=== PATIENT | female | born 1965 | race Caucasian/White ===

== ENCOUNTER 2017-07-16 13:23 | Inpatient (IN) | payer BC ==
[~2017-07-16] VITALS: Ht 160 cm; Wt 82.7 kg
[~2017-07-16 13:23] MED LIST: ASPIRIN 81M81 MG/TA2 PO; DIGESTIVE ENZYM1 TAB PO; FIBER TABLETS1 TAB PO; GLUCOVANCE 2.51 TAB PO; HUMALOG100 U/ML; KLOR-CON 1010 MEQ PO; LACTOSE 260 MG1 CAP; LANTUS100 U/ML SQ; LEVOXYL0.025 MG PO; LOPRESSOR 225 MG/TAB PO; MEDROL 4MG DOSPA4 MG PO; MOBIC15 MG PO; NORCO 325 MG-51 TAB PO; NORCO 325 MG-7.1 TAB PO; NORVASC 5MG5 MG/TAB PO; PHILLIPS1 TAB PO; PRINZIDE 12.5 M1 TA1 PO; PROZAC 20MG20 MG PO; ULTRAM 50MG TAB50 MG PO; ZANTAC 150MG T150 MG PO
[2017-07-16 14:33] LABS: BASO % 0.2 % (0.0-2.0); EOS # 0.1 (0.0-0.7); EOS % 0.8 % (0-4.0); GRAN # 8.8 (1.4-6.5); GRAN % 82.7 % (42.2-75.2); LYMPH # 1.1 (1.2-3.4); LYMPH % 9.9 % (20.0-51.0); MEAN CELL VOLUME 91 fl (80.0-100.0); MEAN CORPUSCULAR HGB CONC 33 g/dl (33.0-37.0); MEAN PLATELET VOLUME 10.3 fl (7.4-10.4); MONO # 0.6 (0.1-0.6); MONO % 5.9 % (1.7-9.3); PLATELET COUNT 254 K/mm3 (130-400); RED BLOOD COUNT 3.27 M/mm3 (4.10-5.30); REDCELL DISTRIBUTION WIDTH-CV 12.9 % (11.5-14.5)
[2017-07-16 14:36] LABS: HEMATOCRIT 29.8 % (37.0-47.0); HEMOGLOBIN 9.8 g/dl (12.5-16.0); MEAN CORPUSCULAR HEMOGLOBIN 30 pg (27.0-31.0)
[2017-07-16 14:46] LABS: ALANINE AMINOTRANSFERASE 22 U/L (9-52); ALBUMIN 3.3 gm/dL (3.5-5.0); ALKALINE PHOSPHATASE 95 U/L (50-136); AST,SGOT 27 U/L (15-37); BILIRUBIN,TOTAL 0.2 mg/dL (0.0-1.0); TOTAL PROTEIN 6.3 gm/dL (6.4-8.2)
[2017-07-16 14:48] LABS: ANION GAP 9 mmol/L (7-16); BLOOD UREA NITROGEN 47 mg/dL (7-17); C-REACTIVE PROTEIN < 0.5 mg/dL (0.0-0.9); CALCIUM 8.1 mg/dL (8.4-10.2); CARBON DIOXIDE 26 mmol/L (22-30); CHLORIDE 101 mmol/L (98-107); GLUCOSE 212 mg/dL (74-106); POTASSIUM 3.8 mmol/L (3.4-5.0); SODIUM 136 mmol/L (137-145)
[2017-07-16 14:50] LABS: CREATININE, serum 4.16 mg/dL (0.52-1.25)
[2017-07-16 14:55] LABS: COLLECTION METHOD CLEAN CATCH
[2017-07-16 15:01] LABS: PH 7 (5-8); SQUAMOUS EPITHELIAL 0-2 /hpf; URINE APPEARANCE Clear; URINE BACTERIA None Seen /hpf; URINE BILIRUBIN Negative (NEGATIVE); URINE BLOOD Negative (NEGATIVE); URINE COLOR Yellow; URINE GLUCOSE 3+ (NEGATIVE); URINE KETONE Negative (NEGATIVE); URINE LEUKOCYTE ESTERASE Negative (NEGATIVE); URINE NITRATE Negative (NEGATIVE); URINE PROTEIN(semi-quant) 3+ (NEGATIVE); URINE UROBILINOGEN Negative (NEGATIVE)
[2017-07-16 15:35] LABS: CREATININE, serum 4.16 mg/dL (0.52-1.25)
[2017-07-16 15:47] LABS: FRACTIONAL EXCRETION OF NA+ 7.2 %
[2017-07-16] MEDS ORDERED: NEXIUM 20MG20 MG PO (16:37)
[2017-07-16] MEDS ORDERED: XYZAL5 MG PO (16:37)
[2017-07-16] MEDS ORDERED: ALDACTONE50 MG PO (16:39)
[2017-07-16 17:08] VITALS: BP 188/83; PULSE 81; TEMP 98
[2017-07-16 17:09] VITALS: BP 188/83; PULSE 81; TEMP 98
[2017-07-16] MEDS ORDERED: PRILOTC PO (17:40)
[2017-07-16] MEDS ORDERED: TOPROL XL 25MG25 MG PO (17:40)
[2017-07-16] MEDS ORDERED: IMODIUM A-D2 MG PO (17:41)
[2017-07-16] MEDS ORDERED: ASPIRIN 81M81 MG/TA2 PO (17:43)
[2017-07-16] MEDS ORDERED: TYLENOL 500MG500 MG PO (17:44)
[2017-07-16 19:01] VITALS: BP 189/83; PULSE 82
[2017-07-16 20:15] VITALS: BP 191/81; PULSE 81; TEMP 98.2
[2017-07-16 20:19] LABS: URINE PROTEIN:CREAT RATIO 14.24 (0.00-0.14)
[2017-07-16 23:32] VITALS: BP 157/74; PULSE 72; TEMP 98.8
[2017-07-17 03:14] VITALS: BP 146/73; PULSE 73; TEMP 97.3
[2017-07-17 08:09] LABS: ALBUMIN 2.9 gm/dL (3.5-5.0); CALCIUM 8.1 mg/dL (8.4-10.2); PHOSPHOROUS 4.4 mg/dL (2.5-4.5); POTASSIUM 3.5 mmol/L (3.4-5.0)
[2017-07-17 08:41] VITALS: BP 171/79; PULSE 77; TEMP 98.4
[2017-07-17 11:30] VITALS: BP 170/83; PULSE 71; TEMP 98.5
[2017-07-17 15:21] VITALS: BP 149/56; PULSE 77; TEMP 98.2
[2017-07-17 15:25] VITALS: BP 136/74; PULSE 72; TEMP 98.7
[2017-07-17 19:52] VITALS: BP 139/73; PULSE 71; TEMP 98
[2017-07-18 00:08] VITALS: BP 140/70; PULSE 67; TEMP 98.9
[2017-07-18 03:53] VITALS: BP 153/73; PULSE 67; TEMP 97.8
[2017-07-18 08:18] VITALS: BP 153/79; PULSE 67; TEMP 98.8
[2017-07-18 08:31] LABS: ALBUMIN 2.6 gm/dL (3.5-5.0); CALCIUM 8.1 mg/dL (8.4-10.2); PHOSPHOROUS 4.6 mg/dL (2.5-4.5); POTASSIUM 3.8 mmol/L (3.4-5.0)
[2017-07-18 08:46] LABS: CREATININE, serum 4.08 mg/dL (0.52-1.25)
[2017-07-18 11:37] VITALS: BP 149/79; PULSE 69; TEMP 98.8
[2017-07-18] MEDS ORDERED: ZESTRIL40 MG PO (14:48)
[2017-07-18] MEDS ORDERED: NEURONTIN100 MG/CAP PO (14:50)
[2017-07-18] MEDS ORDERED: NORVASC 10MG10 MG PO (14:51)
== END 2017-07-18 16:17 | disposition home or self-care (01) | DRG 683 ==
LOC: COL.ER 13:23 → MEDICAL 15:26
PROVIDERS: Emergency Medicine; Internal Medicine Nephrology
DX: N17.0 Acute kidney failure with tubular necrosis (principal); I16.1 Hypertensive emergency; I12.9 Hypertensive chronic kidney disease with stage 1 through stage 4 chronic kidney disease, or unspecified chronic kidney disease; E11.22 Type 2 diabetes mellitus with diabetic chronic kidney disease; N18.3 Chronic kidney disease, stage 3 (moderate); Z91.14 Patient's other noncompliance with medication regimen; Z87.891 Personal history of nicotine dependence; D63.1 Anemia in chronic kidney disease; E11.43 Type 2 diabetes mellitus with diabetic autonomic (poly)neuropathy; K31.84 Gastroparesis; E11.42 Type 2 diabetes mellitus with diabetic polyneuropathy; M54.32 Sciatica, left side
CPT/HCPCS: J1815; J7030

== ENCOUNTER → 2017-07-28 | Outpatient (CLI) | payer BC ==
[~2017-07-28] MED LIST changes: +ALDACTONE50 MG PO; +IMODIUM A-D2 MG PO; +NEURONTIN100 MG/CAP PO; +NEXIUM 20MG20 MG PO; +NORVASC 10MG10 MG PO; +PRILOTC PO; +TOPROL XL 25MG25 MG PO; +TYLENOL 500MG500 MG PO; +XYZAL5 MG PO; +ZESTRIL40 MG PO
== END ==
LOC: COL.VAS 12:24
DX: N18.5 Chronic kidney disease, stage 5 (principal)
CPT/HCPCS: G0365

== ENCOUNTER 2017-08-10 16:39 | Emergency (ER) | payer BC ==
[~2017-08-10] VITALS: Ht 160 cm; Wt 78.2 kg
[2017-08-10 17:27] LABS: BASO % 0.2 % (0.0-2.0); EOS # 0.1 (0.0-0.7); EOS % 1.1 % (0-4.0); GRAN # 9.1 (1.4-6.5); GRAN % 74.4 % (42.2-75.2); HEMATOCRIT 26.1 % (37.0-47.0); HEMOGLOBIN 8.2 g/dl (12.5-16.0); LYMPH # 1.9 (1.2-3.4); LYMPH % 15.5 % (20.0-51.0); MEAN CELL VOLUME 94 fl (80.0-100.0); MEAN CORPUSCULAR HEMOGLOBIN 29 pg (27.0-31.0); MEAN CORPUSCULAR HGB CONC 31 g/dl (33.0-37.0); MEAN PLATELET VOLUME 9.6 fl (7.4-10.4); MONO % 8.4 % (1.7-9.3); PLATELET COUNT 291 K/mm3 (130-400); RED BLOOD COUNT 2.78 M/mm3 (4.10-5.30)
[2017-08-10 17:35] LABS: ALBUMIN 3.3 gm/dL (3.5-5.0); BILIRUBIN,TOTAL 0.1 mg/dL (0.0-1.0); CALCIUM 8.7 mg/dL (8.4-10.2); MAGNESIUM 1.7 mg/dL (1.6-2.3); PHOSPHOROUS 6.4 mg/dL (2.5-4.5); TOTAL PROTEIN 6.8 gm/dL (6.4-8.2)
[2017-08-10 17:37] LABS: CREATININE, serum 6.88 mg/dL (0.52-1.25); POTASSIUM 6.8 mmol/L (3.4-5.0)
[2017-08-10 19:05] LABS: COLLECTION METHOD CLEAN CATCH
[2017-08-10 19:20] LABS: MUCOUS Present /lpf; PH 5 (5-8); SQUAMOUS EPITHELIAL 0-2 /hpf; URINE APPEARANCE Hazy; URINE BACTERIA Rare /hpf; URINE BILIRUBIN Negative (NEGATIVE); URINE BLOOD Negative (NEGATIVE); URINE COLOR Yellow; URINE GLUCOSE Negative (NEGATIVE); URINE KETONE Negative (NEGATIVE); URINE LEUKOCYTE ESTERASE Trace (NEGATIVE); URINE NITRATE Negative (NEGATIVE); URINE PROTEIN(semi-quant) 3+ (NEGATIVE); URINE UROBILINOGEN Negative (NEGATIVE)
[2017-08-10 19:54] LABS: CALCIUM 9.2 mg/dL (8.4-10.2); POTASSIUM 5.6 mmol/L (3.4-5.0)
[2017-08-10 19:58] LABS: CREATININE, serum 6.61 mg/dL (0.52-1.25)
[2017-08-10 21:10] VITALS: BP 137/67; PULSE 83; TEMP 98
== END 2017-08-10 21:22 | disposition home or self-care (01) ==
LOC: COL.ER 16:39
PROVIDERS: Emergency Medicine
DX: E11.22 Type 2 diabetes mellitus with diabetic chronic kidney disease (principal); I12.9 Hypertensive chronic kidney disease with stage 1 through stage 4 chronic kidney disease, or unspecified chronic kidney disease; N18.4 Chronic kidney disease, stage 4 (severe); N17.9 Acute kidney failure, unspecified; E87.5 Hyperkalemia; E87.2 Acidosis; D64.9 Anemia, unspecified; E66.01 Morbid (severe) obesity due to excess calories; E03.9 Hypothyroidism, unspecified; F32.9 Major depressive disorder, single episode, unspecified; Z68.30 Body mass index [BMI] 30.0-30.9, adult; Z90.710 Acquired absence of both cervix and uterus; Z90.49 Acquired absence of other specified parts of digestive tract; Z98.890 Other specified postprocedural states; Z79.4 Long term (current) use of insulin; Z79.82 Long term (current) use of aspirin
CPT/HCPCS: J0610; J7030

== ENCOUNTER 2017-10-24 15:48 | Emergency (ER) | payer BC ==
[~2017-10-24] VITALS: Ht 160 cm; Wt 79.5 kg
[~2017-10-24 15:48] MED LIST changes: +ASPIRIN E.C. 8181 MG PO; +B COMPLEX #11 TAB PO; +COENZYME Q-10100 M1 PO; +CORDARONE200 MG/TAB PO; +DESENEX TP; +HUMALOG100 U/ML SQ; +IMODIUM 2MG CAPS2 MG PO; +K-DUR 10 MEQ T10 MEQ PO; +LANTUS SOLOS100 U/ML SQ; +LASIX 40MG TABL40 MG PO; +Patient's Own Medica PO; +SODIUM BICARBO650 MG PO; +SYNTHROID 0.0.025 MG PO; +ZAROXOLYN 2.52.5 MG PO
[2017-10-24 16:00] VITALS: TEMP 98.9
[2017-10-24 17:10] VITALS: BP 176/86; PULSE 91
== END 2017-10-24 17:15 | disposition home or self-care (01) ==
LOC: COL.ER 15:48
DX: T82.9XXA Unspecified complication of cardiac and vascular prosthetic device, implant and graft, initial encounter (principal); I12.0 Hypertensive chronic kidney disease with stage 5 chronic kidney disease or end stage renal disease; E08.22 Diabetes mellitus due to underlying condition with diabetic chronic kidney disease; N18.6 End stage renal disease; Z99.2 Dependence on renal dialysis; Z79.4 Long term (current) use of insulin; Z79.82 Long term (current) use of aspirin

== ENCOUNTER → 2017-11-29 | Outpatient (CLI) | payer BC | LOC: COL.VAS 15:01 | DX: I34.0 Nonrheumatic mitral (valve) insufficiency (principal) ==

== ENCOUNTER 2017-12-07 08:48 | Inpatient (IN) | payer BC ==
[~2017-12-07] VITALS: Ht 160 cm; Wt 79.5 kg
[2017-12-07] MEDS ORDERED: TYLENOL 500MG500 MG PO (09:04)
[2017-12-07 09:24] LABS: MEAN CELL VOLUME 86 fl (80.0-100.0); MEAN CORPUSCULAR HGB CONC 32 g/dl (33.0-37.0); MEAN PLATELET VOLUME 10.3 fl (7.4-10.4); PLATELET COUNT 304 K/mm3 (130-400); RED BLOOD COUNT 3.18 M/mm3 (4.10-5.30); REDCELL DISTRIBUTION WIDTH-CV 18.6 % (11.5-14.5)
[2017-12-07 09:29] LABS: HEMATOCRIT 27.4 % (37.0-47.0); HEMOGLOBIN 8.8 g/dl (12.5-16.0); MEAN CORPUSCULAR HEMOGLOBIN 28 pg (27.0-31.0)
[2017-12-07 09:42] LABS: ALBUMIN 2.9 gm/dL (3.5-5.0); BILIRUBIN,TOTAL 0.7 mg/dL (0.0-1.0); CALCIUM 8.6 mg/dL (8.4-10.2); POTASSIUM 4.4 mmol/L (3.4-5.0); TOTAL PROTEIN 6.5 gm/dL (6.4-8.2)
[2017-12-07 09:43] LABS: CREATININE, serum 4.53 mg/dL (0.52-1.25)
[2017-12-07 09:45] LABS: COLLECTION METHOD CLEAN CATCH
[2017-12-07 09:50] LABS: TROPONIN-I 0.03 ng/mL (0.000-0.034)
[2017-12-07 10:00] LABS: C-REACTIVE PROTEIN 19.6 mg/dL (0.0-0.9)
[2017-12-07 10:33] LABS: PH 5 (5-8); URINE APPEARANCE Hazy; URINE BILIRUBIN Positive (NEGATIVE); URINE COLOR Yellow; URINE KETONE Negative (NEGATIVE); URINE PROTEIN(semi-quant) 3+ (NEGATIVE)
[2017-12-07 10:34] LABS: URINE BLOOD Negative (NEGATIVE); URINE GLUCOSE 1+ (NEGATIVE); URINE LEUKOCYTE ESTERASE 2+ (NEGATIVE); URINE NITRATE Negative (NEGATIVE); URINE UROBILINOGEN Negative (NEGATIVE)
[2017-12-07 10:35] LABS: SQUAMOUS EPITHELIAL 0-2 /hpf
[2017-12-07 10:53] VITALS: BP 142/63; PULSE 77; TEMP 98.2
[2017-12-07 10:55] VITALS: BP 142/63; PULSE 76; TEMP 98.2
[2017-12-07] MEDS ORDERED: K-TAB10 (11:31)
[2017-12-07] MEDS ORDERED: LASIX 40MG TABL40 MG PO ×2 (11:32)
[2017-12-07] MEDS ORDERED: LANTUS100 U/ML SQ (11:36)
[2017-12-07 11:48] LABS: BASOPHIL 1 % (0-2); EOSINOPHIL 1 % (0-4); LYMPHOCYTE 4 % (20.0-51.0); METAMYELOCYTE 1 % (0-0)
[2017-12-07 11:49] LABS: ANISOCYTOSIS 1+
[2017-12-07 11:50] LABS: BAND 10 % (0-10); NEUTROPHILS 79 % (42.0-75.2)
[2017-12-07] MEDS ORDERED: COENZYME Q-10100 M1 PO (15:12)
[2017-12-07 16:51] LABS: PARTIAL THROMBOPLASTIN TIME 34.4 SECONDS (26.0-37.0)
[2017-12-07 16:57] VITALS: BP 151/66; PULSE 81; TEMP 98
[2017-12-07 19:26] VITALS: BP 159/75; PULSE 87; TEMP 98
[2017-12-08 00:02] VITALS: BP 136/63; PULSE 80; TEMP 98.7
[2017-12-08 00:23] LABS: COAG INR 1.7 (0.9-1.2)
[2017-12-08 04:25] VITALS: BP 121/61; PULSE 71; TEMP 98.7
[2017-12-08 05:50] LABS: MEAN CELL VOLUME 85 fl (80.0-100.0); MEAN CORPUSCULAR HGB CONC 33 g/dl (33.0-37.0); PLATELET COUNT 283 K/mm3 (130-400); RED BLOOD COUNT 3.01 M/mm3 (4.10-5.30)
[2017-12-08 05:56] LABS: HEMATOCRIT 25.5 % (37.0-47.0); HEMOGLOBIN 8.4 g/dl (12.5-16.0); MEAN CORPUSCULAR HEMOGLOBIN 28 pg (27.0-31.0)
[2017-12-08 06:08] LABS: CALCIUM 8.1 mg/dL (8.4-10.2); POTASSIUM 4.1 mmol/L (3.4-5.0)
[2017-12-08 06:10] LABS: CREATININE, serum 4.88 mg/dL (0.52-1.25)
[2017-12-08 06:21] LABS: C-REACTIVE PROTEIN 16.2 mg/dL (0.0-0.9)
[2017-12-08 06:25] LABS: BAND 1 % (0-10); EOSINOPHIL 2 % (0-4); LYMPHOCYTE 9 % (20.0-51.0); NEUTROPHILS 84 % (42.0-75.2)
[2017-12-08 06:27] LABS: PLATELET ESTIMATE NORMAL (NORMAL); TOXIC GRANULATION PRESENT
[2017-12-08 06:28] LABS: ANISOCYTOSIS 1+; TARGET CELLS 1+
[2017-12-08 07:39] VITALS: BP 139/64; PULSE 69; TEMP 98.4
[2017-12-08 14:28] LABS: PARTIAL THROMBLASTIN TIME 32.4 seconds (25.0-35.0)
[2017-12-08 14:42] LABS: FACTOR V LEIDEN MUTATION B INVALID (Negative)
[2017-12-08 17:14] VITALS: BP 124/60; PULSE 85; TEMP 98.4
[2017-12-08 19:27] VITALS: BP 143/63; PULSE 88; TEMP 98.4
[2017-12-08 23:05] VITALS: BP 112/52; PULSE 71; TEMP 99.5
[2017-12-09 03:20] VITALS: BP 116/50; PULSE 74; TEMP 98.6
[2017-12-09 06:45] LABS: MEAN CELL VOLUME 86 fl (80.0-100.0); MEAN CORPUSCULAR HGB CONC 33 g/dl (33.0-37.0); MEAN PLATELET VOLUME 10.6 fl (7.4-10.4); PLATELET COUNT 285 K/mm3 (130-400); RED BLOOD COUNT 2.76 M/mm3 (4.10-5.30); REDCELL DISTRIBUTION WIDTH-CV 19.1 % (11.5-14.5)
[2017-12-09 06:56] LABS: HEMATOCRIT 23.7 % (37.0-47.0); HEMOGLOBIN 7.7 g/dl (12.5-16.0); MEAN CORPUSCULAR HEMOGLOBIN 28 pg (27.0-31.0)
[2017-12-09 06:57] LABS: CALCIUM 8.2 mg/dL (8.4-10.2); CREATININE, serum 3.46 mg/dL (0.52-1.25); POTASSIUM 3.5 mmol/L (3.4-5.0)
[2017-12-09 07:58] LABS: BAND 13 % (0-10); LYMPHOCYTE 4 % (20.0-51.0); NEUTROPHILS 78 % (42.0-75.2); PLATELET ESTIMATE NORMAL (NORMAL)
[2017-12-09 07:59] LABS: HYPOCHROMIA 2+; TOXIC GRANULATION PRESENT
[2017-12-09 08:19] VITALS: BP 133/62; PULSE 75; TEMP 98.4
[2017-12-09 11:53] VITALS: BP 130/54; PULSE 74; TEMP 98.2
[2017-12-09 16:27] VITALS: BP 121/57; PULSE 64; TEMP 98.2
[2017-12-09 19:30] VITALS: BP 162/65; BP 171/67; PULSE 76; TEMP 97.5
[2017-12-09 23:58] VITALS: BP 156/68; PULSE 75; TEMP 98.3
[2017-12-10 03:15] VITALS: BP 131/52; PULSE 78; TEMP 99.2
[2017-12-10 07:05] VITALS: BP 129/55; PULSE 78; TEMP 99.4
[2017-12-10 08:40] LABS: MEAN CELL VOLUME 84 fl (80.0-100.0); MEAN CORPUSCULAR HGB CONC 33 g/dl (33.0-37.0); MEAN PLATELET VOLUME 9.6 fl (7.4-10.4); PLATELET COUNT 313 K/mm3 (130-400); RED BLOOD COUNT 2.73 M/mm3 (4.10-5.30)
[2017-12-10 08:43] LABS: HEMOGLOBIN 7.5 g/dl (12.5-16.0); MEAN CORPUSCULAR HEMOGLOBIN 27 pg (27.0-31.0)
[2017-12-10 08:52] LABS: POTASSIUM 3.7 mmol/L (3.4-5.0)
[2017-12-10 08:59] LABS: CREATININE, serum 4.03 mg/dL (0.52-1.25)
[2017-12-10 09:04] LABS: ANTI-THROMBIN III 86 % (72-128)
[2017-12-10 09:08] LABS: PROTEIN C ACTIVITY 65 % (70-150)
[2017-12-10 10:24] LABS: BAND 9 % (0-10); EOSINOPHIL 3 % (0-4); LYMPHOCYTE 6 % (20.0-51.0); NEUTROPHILS 81 % (42.0-75.2)
[2017-12-10 10:28] LABS: PLATELET ESTIMATE NORMAL (NORMAL); TOXIC GRANULATION PRESENT
[2017-12-10 10:29] LABS: ANISOCYTOSIS 1+; HYPOCHROMIA 1+
[2017-12-10 11:50] LABS: LUPUS ANTICOAGULANT INR 1.9 (()); LUPUS ANTICOAGULANT PT 20.7 sec (())
[2017-12-10 14:31] LABS: PT G20210A MUTATION B INVALID (Negative)
[2017-12-10 16:47] VITALS: BP 131/67; PULSE 73; TEMP 98.2
[2017-12-10 19:11] VITALS: BP 138/58; PULSE 77; TEMP 99
[2017-12-10 23:40] VITALS: BP 127/47; PULSE 73; TEMP 99.1
[2017-12-11 03:38] VITALS: BP 135/67; PULSE 77; TEMP 99.1
[2017-12-11 06:56] LABS: MEAN CELL VOLUME 83 fl (80.0-100.0); MEAN CORPUSCULAR HGB CONC 33 g/dl (33.0-37.0); MEAN PLATELET VOLUME 9.9 fl (7.4-10.4); PLATELET COUNT 316 K/mm3 (130-400); RED BLOOD COUNT 2.73 M/mm3 (4.10-5.30); REDCELL DISTRIBUTION WIDTH-CV 19.3 % (11.5-14.5)
[2017-12-11 07:13] LABS: INR 1.2 (0.8-3.0); PROTHROMBIN TIME 13.2 SECONDS (9.7-12.8)
[2017-12-11 07:15] LABS: CALCIUM 8.3 mg/dL (8.4-10.2); CREATININE, serum 3.2 mg/dL (0.52-1.25); POTASSIUM 4.1 mmol/L (3.4-5.0)
[2017-12-11 07:24] LABS: HEMATOCRIT 22.7 % (37.0-47.0); HEMOGLOBIN 7.4 g/dl (12.5-16.0); MEAN CORPUSCULAR HEMOGLOBIN 27 pg (27.0-31.0)
[2017-12-11 07:35] VITALS: BP 156/67; PULSE 80; TEMP 99
[2017-12-11 08:21] LABS: ANISOCYTOSIS 1+; BAND 3 % (0-10); HYPOCHROMIA 1+; LYMPHOCYTE 5 % (20.0-51.0); NEUTROPHILS 87 % (42.0-75.2); PLATELET ESTIMATE NORMAL (NORMAL)
[2017-12-11 12:03] VITALS: BP 140/69; PULSE 70; TEMP 97.9
[2017-12-11 16:02] VITALS: BP 139/56; PULSE 70; TEMP 98.2
[2017-12-11 19:04] VITALS: BP 169/62; PULSE 77; TEMP 97.8
[2017-12-12 00:06] VITALS: BP 134/54; PULSE 76; TEMP 98.1
[2017-12-12 03:50] VITALS: BP 135/62; BP 140/51; PULSE 72; TEMP 97.4; TEMP 98.2
[2017-12-12 04:28] LABS: INR 2.3 (0.8-3.0); PROTHROMBIN TIME 26.4 SECONDS (9.7-12.8)
[2017-12-12 04:33] LABS: BASO % 0.2 % (0.0-2.0); CALCIUM 7.9 mg/dL (8.4-10.2); CREATININE, serum 3.82 mg/dL (0.52-1.25); EOS # 0.5 (0.0-0.7); EOS % 3.1 % (0-4.0); GRAN # 12.1 (1.4-6.5); GRAN % 76.6 % (42.2-75.2); LYMPH # 1.7 (1.2-3.4); LYMPH % 10.5 % (20.0-51.0); MEAN CELL VOLUME 82 fl (80.0-100.0); MEAN CORPUSCULAR HGB CONC 33 g/dl (33.0-37.0); MEAN PLATELET VOLUME 10.1 fl (7.4-10.4); MONO # 1.1 (0.1-0.6); MONO % 6.9 % (1.7-9.3); PLATELET COUNT 293 K/mm3 (130-400); POTASSIUM 4.3 mmol/L (3.4-5.0); RED BLOOD COUNT 2.54 M/mm3 (4.10-5.30); REDCELL DISTRIBUTION WIDTH-CV 18.8 % (11.5-14.5)
[2017-12-12 04:35] LABS: HEMATOCRIT 20.9 % (37.0-47.0); MEAN CORPUSCULAR HEMOGLOBIN 27 pg (27.0-31.0)
[2017-12-12 04:37] LABS: HEMOGLOBIN 6.9 g/dl (12.5-16.0)
[2017-12-12 08:37] VITALS: BP 160/64; PULSE 78; TEMP 98.7
[2017-12-12 11:29] VITALS: BP 138/64; PULSE 77; TEMP 98.3
[2017-12-12 15:38] VITALS: BP 128/55; PULSE 69; TEMP 98.4
[2017-12-12 20:00] VITALS: BP 140/59; PULSE 72; TEMP 98.3
[2017-12-13 00:45] VITALS: BP 134/60; PULSE 68; TEMP 98.6
[2017-12-13 04:58] VITALS: BP 137/68; PULSE 73; TEMP 98.4
[2017-12-13 06:58] LABS: MEAN CELL VOLUME 86 fl (80.0-100.0); MEAN CORPUSCULAR HGB CONC 32 g/dl (33.0-37.0); MEAN PLATELET VOLUME 10.2 fl (7.4-10.4); PLATELET COUNT 349 K/mm3 (130-400); RED BLOOD COUNT 2.46 M/mm3 (4.10-5.30)
[2017-12-13 07:00] LABS: HEMATOCRIT 21.2 % (37.0-47.0); MEAN CORPUSCULAR HEMOGLOBIN 28 pg (27.0-31.0)
[2017-12-13 07:01] LABS: HEMOGLOBIN 6.8 g/dl (12.5-16.0)
[2017-12-13 07:12] LABS: INR 5.5 (0.8-3.0); PROTHROMBIN TIME 62.8 SECONDS (9.7-12.8)
[2017-12-13 07:15] LABS: CALCIUM 7.8 mg/dL (8.4-10.2); POTASSIUM 4.8 mmol/L (3.4-5.0)
[2017-12-13 07:28] LABS: CREATININE, serum 4.18 mg/dL (0.52-1.25)
[2017-12-13 07:43] LABS: ANISOCYTOSIS 2+; BAND 2 % (0-10); EOSINOPHIL 3 % (0-4); LYMPHOCYTE 10 % (20.0-51.0); NEUTROPHILS 80 % (42.0-75.2); PLATELET ESTIMATE NORMAL (NORMAL)
[2017-12-13 07:44] LABS: TOXIC GRANULATION PRESENT
[2017-12-13 07:45] VITALS: BP 154/65; PULSE 80; TEMP 97.9
[2017-12-13 07:45] LABS: POLYCHROMASIA 1+
[2017-12-13 12:26] VITALS: BP 151/65; PULSE 73; TEMP 97.8
[2017-12-13 16:07] VITALS: BP 162/72; PULSE 73; TEMP 98.8
[2017-12-13 19:24] VITALS: BP 139/67; PULSE 80; TEMP 98.2
[2017-12-14] VITALS (7 sets, daily range): BP systolic 120–153; BP diastolic 60–71; PULSE 69–93; TEMP 98.2–98.9
[2017-12-14 06:51] LABS: MEAN CELL VOLUME 84 fl (80.0-100.0); MEAN CORPUSCULAR HGB CONC 32 g/dl (33.0-37.0); MEAN PLATELET VOLUME 9.7 fl (7.4-10.4); PLATELET COUNT 323 K/mm3 (130-400); RED BLOOD COUNT 2.64 M/mm3 (4.10-5.30); REDCELL DISTRIBUTION WIDTH-CV 18.3 % (11.5-14.5)
[2017-12-14 07:02] LABS: HEMATOCRIT 22.2 % (37.0-47.0); HEMOGLOBIN 7.2 g/dl (12.5-16.0); MEAN CORPUSCULAR HEMOGLOBIN 27 pg (27.0-31.0)
[2017-12-14 07:03] LABS: ALBUMIN 2.5 gm/dL (3.5-5.0); BILIRUBIN,TOTAL 0.2 mg/dL (0.0-1.0); CALCIUM 7.7 mg/dL (8.4-10.2); TOTAL PROTEIN 5.8 gm/dL (6.4-8.2)
[2017-12-14 07:06] LABS: INR 5.4 (0.8-3.0); PROTHROMBIN TIME 61.2 SECONDS (9.7-12.8)
[2017-12-14 07:07] LABS: CREATININE, serum 4.42 mg/dL (0.52-1.25)
[2017-12-14 07:29] LABS: EOSINOPHIL 1 % (0-4); LYMPHOCYTE 13 % (20.0-51.0); NEUTROPHILS 80 % (42.0-75.2)
[2017-12-14 07:30] LABS: PLATELET ESTIMATE NORMAL (NORMAL)
[2017-12-14 07:31] LABS: ANISOCYTOSIS 2+
[2017-12-14 07:32] LABS: TARGET CELLS 1+
[2017-12-14 07:33] LABS: HYPOCHROMIA 1+
[2017-12-15 04:30] VITALS: BP 134/64; PULSE 91; TEMP 99.4
[2017-12-15 06:38] LABS: HEMATOCRIT 22.8 % (37.0-47.0); HEMOGLOBIN 7.3 g/dl (12.5-16.0); MEAN CELL VOLUME 86 fl (80.0-100.0); MEAN CORPUSCULAR HEMOGLOBIN 28 pg (27.0-31.0); MEAN CORPUSCULAR HGB CONC 32 g/dl (33.0-37.0); MEAN PLATELET VOLUME 9.6 fl (7.4-10.4); PLATELET COUNT 379 K/mm3 (130-400); RED BLOOD COUNT 2.64 M/mm3 (4.10-5.30); REDCELL DISTRIBUTION WIDTH-CV 18.5 % (11.5-14.5)
[2017-12-15 06:43] LABS: INR 2.2 (0.8-3.0); PROTHROMBIN TIME 24.8 SECONDS (9.7-12.8)
[2017-12-15 06:54] LABS: CALCIUM 7.7 mg/dL (8.4-10.2); POTASSIUM 4.7 mmol/L (3.4-5.0)
[2017-12-15 07:00] VITALS: BP 158/66; PULSE 78; TEMP 99.4
[2017-12-15 07:00] LABS: LYMPHOCYTE 5 % (20.0-51.0); MYELOCYTE 1 % (0-0); NEUTROPHILS 91 % (42.0-75.2); PLATELET ESTIMATE NORMAL (NORMAL)
[2017-12-15 07:01] LABS: ANISOCYTOSIS 1+; POLYCHROMASIA 1+
[2017-12-15 07:02] LABS: TARGET CELLS 1+
[2017-12-15 07:03] LABS: HYPOCHROMIA 1+
[2017-12-15 07:08] LABS: CREATININE, serum 4.87 mg/dL (0.52-1.25)
[2017-12-15 11:09] VITALS: BP 141/57; PULSE 79; TEMP 97.9
[2017-12-15 14:54] VITALS: BP 144/63; PULSE 76; TEMP 98.6
[2017-12-15 19:37] VITALS: BP 156/59; PULSE 85; TEMP 99.4
[2017-12-15 21:49] LABS: COLLECTION METHOD CLEAN CATCH
[2017-12-15 21:54] LABS: PH 5 (5-8); URINE APPEARANCE Clear; URINE BACTERIA Rare /hpf; URINE BILIRUBIN Negative (NEGATIVE); URINE BLOOD 2+ (NEGATIVE); URINE COLOR Yellow; URINE GLUCOSE 1+ (NEGATIVE); URINE KETONE Negative (NEGATIVE); URINE LEUKOCYTE ESTERASE Negative (NEGATIVE); URINE NITRATE Negative (NEGATIVE); URINE PROTEIN(semi-quant) 2+ (NEGATIVE); URINE RBC >50 /hpf; URINE UROBILINOGEN Negative (NEGATIVE)
[2017-12-15 23:56] VITALS: BP 152/71; PULSE 80; TEMP 98.8
[2017-12-16] VITALS (10 sets, daily range): BP systolic 128–164; BP diastolic 54–76; PULSE 58–88; TEMP 97.6–99.2
[2017-12-16 06:37] LABS: MEAN CELL VOLUME 86 fl (80.0-100.0); MEAN CORPUSCULAR HGB CONC 33 g/dl (33.0-37.0); MEAN PLATELET VOLUME 9.9 fl (7.4-10.4); PLATELET COUNT 357 K/mm3 (130-400); RED BLOOD COUNT 2.46 M/mm3 (4.10-5.30); REDCELL DISTRIBUTION WIDTH-CV 18.3 % (11.5-14.5)
[2017-12-16 06:39] LABS: HEMATOCRIT 21.1 % (37.0-47.0); HEMOGLOBIN 6.9 g/dl (12.5-16.0); MEAN CORPUSCULAR HEMOGLOBIN 28 pg (27.0-31.0)
[2017-12-16 06:47] LABS: INR 1.5 (0.8-3.0); PROTHROMBIN TIME 17.6 SECONDS (9.7-12.8)
[2017-12-16 06:51] LABS: CALCIUM 7.6 mg/dL (8.4-10.2); POTASSIUM 4.4 mmol/L (3.4-5.0)
[2017-12-16 06:53] LABS: CREATININE, serum 4.94 mg/dL (0.52-1.25)
[2017-12-16 07:10] LABS: EOSINOPHIL 2 % (0-4); LYMPHOCYTE 10 % (20.0-51.0); NEUTROPHILS 78 % (42.0-75.2); NUCLEATED RED BLOOD CELL 1 (0-6); PLATELET ESTIMATE NORMAL (NORMAL)
[2017-12-16 07:11] LABS: ANISOCYTOSIS 1+; TOXIC GRANULATION PRESENT
[2017-12-17 00:25] VITALS: BP 151/66; PULSE 78; TEMP 98.7
[2017-12-17 04:41] VITALS: BP 153/68; PULSE 81; TEMP 99
[2017-12-17 06:54] LABS: BASO # 0.1 (0.0-0.2); BASO % 0.3 % (0.0-2.0); EOS # 0.1 (0.0-0.7); EOS % 0.7 % (0-4.0); GRAN # 14.6 (1.4-6.5); GRAN % 84.7 % (42.2-75.2); LYMPH # 1.1 (1.2-3.4); LYMPH % 6.3 % (20.0-51.0); MEAN CELL VOLUME 87 fl (80.0-100.0); MEAN CORPUSCULAR HGB CONC 32 g/dl (33.0-37.0); MEAN PLATELET VOLUME 9.5 fl (7.4-10.4); MONO # 1.2 (0.1-0.6); MONO % 7.1 % (1.7-9.3); PLATELET COUNT 373 K/mm3 (130-400); RED BLOOD COUNT 3.02 M/mm3 (4.10-5.30); REDCELL DISTRIBUTION WIDTH-CV 17.3 % (11.5-14.5)
[2017-12-17 06:58] LABS: HEMATOCRIT 26.4 % (37.0-47.0); HEMOGLOBIN 8.5 g/dl (12.5-16.0); MEAN CORPUSCULAR HEMOGLOBIN 28 pg (27.0-31.0)
[2017-12-17 07:05] LABS: INR 1.6 (0.8-3.0); PROTHROMBIN TIME 18.3 SECONDS (9.7-12.8)
[2017-12-17 07:06] LABS: CALCIUM 7.8 mg/dL (8.4-10.2); CREATININE, serum 3.29 mg/dL (0.52-1.25); POTASSIUM 4.2 mmol/L (3.4-5.0)
[2017-12-17 08:18] VITALS: BP 150/59; PULSE 85; TEMP 97.6
[2017-12-17 12:56] VITALS: BP 135/55; PULSE 77; TEMP 97.7
[2017-12-17 16:03] VITALS: BP 173/73; PULSE 78; TEMP 98.5
[2017-12-17 16:11] LABS: PLEURAL FLUID APPEARANCE CLOUDY; PLEURAL FLUID COLOR RED
[2017-12-17 16:12] LABS: PLEURAL FLUID RBC 83000 /mm3 (0-0); PLEURAL FLUID WBC 1172 /mm3
[2017-12-17 16:22] LABS: GLUCOSE,PLEURAL FLUID 93 mg/dL; TOTAL PROTEIN,PLEURAL FLUID 2.6 gm/dL
[2017-12-17 20:23] VITALS: BP 156/64; PULSE 74; TEMP 98.5
[2017-12-18 00:07] VITALS: BP 166/73; PULSE 76; TEMP 98.1
[2017-12-18 03:41] VITALS: BP 164/66; PULSE 79; TEMP 98.3
[2017-12-18 07:53] VITALS: BP 170/74; PULSE 78; TEMP 98.6
[2017-12-18 16:08] VITALS: BP 133/54; PULSE 78; TEMP 98.2
[2017-12-18 20:00] VITALS: PULSE 73; TEMP 98.7
[2017-12-19] VITALS: BP 157/59; PULSE 67; TEMP 98.7
[2017-12-19 04:00] VITALS: BP 165/71; PULSE 73; TEMP 98.6
[2017-12-19 07:01] LABS: BASO # 0.1 (0.0-0.2); BASO % 0.5 % (0.0-2.0); EOS # 0.1 (0.0-0.7); EOS % 1.2 % (0-4.0); GRAN # 8.9 (1.4-6.5); GRAN % 77.7 % (42.2-75.2); LYMPH # 1.3 (1.2-3.4); LYMPH % 11.5 % (20.0-51.0); MEAN CELL VOLUME 89 fl (80.0-100.0); MEAN CORPUSCULAR HGB CONC 32 g/dl (33.0-37.0); MEAN PLATELET VOLUME 8.9 fl (7.4-10.4); MONO % 8.4 % (1.7-9.3); PLATELET COUNT 375 K/mm3 (130-400); RED BLOOD COUNT 3.04 M/mm3 (4.10-5.30); REDCELL DISTRIBUTION WIDTH-CV 16.9 % (11.5-14.5)
[2017-12-19 07:10] LABS: HEMOGLOBIN 8.6 g/dl (12.5-16.0); MEAN CORPUSCULAR HEMOGLOBIN 28 pg (27.0-31.0)
[2017-12-19 07:11] LABS: ALBUMIN 2.6 gm/dL (3.5-5.0); BILIRUBIN,TOTAL 0.3 mg/dL (0.0-1.0); CREATININE, serum 3.18 mg/dL (0.52-1.25); MAGNESIUM 1.9 mg/dL (1.6-2.3); POTASSIUM 3.7 mmol/L (3.4-5.0); TOTAL PROTEIN 6.2 gm/dL (6.4-8.2)
[2017-12-19 07:15] VITALS: BP 163/69; PULSE 79; TEMP 99.5
[2017-12-19 07:17] LABS: PROTHROMBIN TIME 34.7 SECONDS (9.7-12.8)
[2017-12-19 11:30] VITALS: BP 140/60; PULSE 68; TEMP 98.3
[2017-12-19 16:25] VITALS: BP 175/78; PULSE 74; TEMP 98.4
[2017-12-19 20:55] VITALS: BP 177/67; PULSE 72; TEMP 97.8
[2017-12-20 00:09] VITALS: BP 181/80; PULSE 70; TEMP 98.1
[2017-12-20 04:00] VITALS: BP 167/70; PULSE 77; TEMP 97.8
[2017-12-20 07:15] LABS: BASO # 0.1 (0.0-0.2); BASO % 0.4 % (0.0-2.0); EOS # 0.2 (0.0-0.7); EOS % 1.3 % (0-4.0); GRAN # 9.5 (1.4-6.5); GRAN % 80.3 % (42.2-75.2); LYMPH # 1.2 (1.2-3.4); LYMPH % 9.9 % (20.0-51.0); MEAN CELL VOLUME 90 fl (80.0-100.0); MEAN CORPUSCULAR HGB CONC 31 g/dl (33.0-37.0); MEAN PLATELET VOLUME 8.8 fl (7.4-10.4); MONO # 0.9 (0.1-0.6); MONO % 7.4 % (1.7-9.3); PLATELET COUNT 370 K/mm3 (130-400); RED BLOOD COUNT 3.09 M/mm3 (4.10-5.30); REDCELL DISTRIBUTION WIDTH-CV 16.8 % (11.5-14.5)
[2017-12-20 07:16] LABS: HEMATOCRIT 27.7 % (37.0-47.0); HEMOGLOBIN 8.7 g/dl (12.5-16.0); MEAN CORPUSCULAR HEMOGLOBIN 28 pg (27.0-31.0)
[2017-12-20 07:21] LABS: INR 3.6 (0.8-3.0); PROTHROMBIN TIME 41.4 SECONDS (9.7-12.8)
[2017-12-20 07:28] LABS: ALBUMIN 2.6 gm/dL (3.5-5.0); BILIRUBIN,TOTAL 0.2 mg/dL (0.0-1.0); CALCIUM 8.2 mg/dL (8.4-10.2); TOTAL PROTEIN 6.1 gm/dL (6.4-8.2)
[2017-12-20 07:40] LABS: CREATININE, serum 4.3 mg/dL (0.52-1.25)
[2017-12-20 11:47] VITALS: BP 132/64; PULSE 72; TEMP 98.3
[2017-12-20] MEDS ORDERED: COUMADIN 1MG1 MG/TAB PO (11:49)
[2017-12-20] MEDS ORDERED: LANTUS100 U/ML SQ (11:53)
[2017-12-20] MEDS ORDERED: CEFAZOLIN1 G1 IV (11:56)
[2017-12-20 15:15] LABS: INR 3.3 (0.8-3.0)
== END 2017-12-20 16:00 | disposition home or self-care (01) | DRG 314 ==
LOC: COL.ER 08:48 → MEDICAL 10:00
PROVIDERS: Family Medicine; Internal Medicine; Internal Medicine Critical Care Medicine; Internal Medicine Nephrology; Physician Assistant
PROC: 5A1D70Z Performance of Urinary Filtration, Intermittent, Less than 6 Hours Per Day (ICD-10-PCS; principal; 2017-12-08)
PROC: 02PYX3Z Removal of Infusion Device from Great Vessel, External Approach (ICD-10-PCS; 2017-12-08)
PROC: 5A1D70Z Performance of Urinary Filtration, Intermittent, Less than 6 Hours Per Day (ICD-10-PCS; 2017-12-10)
PROC: 5A1D70Z Performance of Urinary Filtration, Intermittent, Less than 6 Hours Per Day (ICD-10-PCS; 2017-12-13)
PROC: 5A1D70Z Performance of Urinary Filtration, Intermittent, Less than 6 Hours Per Day (ICD-10-PCS; 2017-12-16)
PROC: 0JH60XZ Insertion of Tunneled Vascular Access Device into Chest Subcutaneous Tissue and Fascia, Open Approach (ICD-10-PCS; 2017-12-16)
PROC: 02H633Z Insertion of Infusion Device into Right Atrium, Percutaneous Approach (ICD-10-PCS; 2017-12-16)
PROC: 0W993ZX Drainage of Right Pleural Cavity, Percutaneous Approach, Diagnostic (ICD-10-PCS; 2017-12-17)
PROC: 5A1D70Z Performance of Urinary Filtration, Intermittent, Less than 6 Hours Per Day (ICD-10-PCS; 2017-12-18)
PROC: 5A1D70Z Performance of Urinary Filtration, Intermittent, Less than 6 Hours Per Day (ICD-10-PCS; 2017-12-20)
DX: T80.211A Bloodstream infection due to central venous catheter, initial encounter (principal); A41.01 Sepsis due to Methicillin susceptible Staphylococcus aureus; I26.99 Other pulmonary embolism without acute cor pulmonale; N18.6 End stage renal disease; I12.0 Hypertensive chronic kidney disease with stage 5 chronic kidney disease or end stage renal disease; J90 Pleural effusion, not elsewhere classified; E87.1 Hypo-osmolality and hyponatremia; B95.61 Methicillin susceptible Staphylococcus aureus infection as the cause of diseases classified elsewhere; E11.22 Type 2 diabetes mellitus with diabetic chronic kidney disease; Z99.2 Dependence on renal dialysis; Z79.4 Long term (current) use of insulin; D63.1 Anemia in chronic kidney disease; K76.89 Other specified diseases of liver; Z85.43 Personal history of malignant neoplasm of ovary
CPT/HCPCS: 99222; 99231-AI; 99232-AI; 99233-AI; G9654; J0690; J0696; J0882; J1644; J1815; J2250; J2543; J2704; J2916; J3010; J3370; J3430; J7050; P9016; Q9967

== ENCOUNTER → 2018-01-10 | Outpatient (CLI) | payer BC, MEDICARE ==
[~2018-01-10] MED LIST changes: +CEFAZOLIN1 G1 IV; +COUMADIN 1MG1 MG/TAB PO; +K-TAB10
== END ==
LOC: COL.RAD 08:00
DX: J90 Pleural effusion, not elsewhere classified (principal); K75.0 Abscess of liver; R93.2 Abnormal findings on diagnostic imaging of liver and biliary tract; Z90.49 Acquired absence of other specified parts of digestive tract

== ENCOUNTER → 2018-03-16 | Outpatient (CLI) | payer BC, MEDICARE ==
[~2018-03-16] VITALS: Ht 160 cm; Wt 72.2 kg
[2018-03-16 07:11] VITALS: BP 195/95; PULSE 80
[2018-03-16 08:00] VITALS: BP 163/75; PULSE 75
== END ==
LOC: COL.RAD 06:39
DX: Z49.01 Encounter for fitting and adjustment of extracorporeal dialysis catheter (principal)

== ENCOUNTER → 2018-03-17 | Outpatient (CLI) | payer BC, MEDICARE | LOC: COL.RAD 12:38 | DX: R07.9 Chest pain, unspecified (principal); R16.0 Hepatomegaly, not elsewhere classified; Z90.49 Acquired absence of other specified parts of digestive tract; Z86.711 Personal history of pulmonary embolism ==

== ENCOUNTER 2018-08-11 11:40 | Outpatient (CLI) | payer BC ==
[2018-08-11] VITALS (10 sets, daily range): BP systolic 155–213; BP diastolic 100–118; PULSE 75–78; TEMP 97.1
--- NOTE | 2018-08-11 12:28 | NUR ---
NOTIFIED RAD PT BP ELEVATED AND ASYMPTOMATIC. PER PATIENT ELEVATED BP IS NOT ABNORMAL FOR HER. NO NEW ORDERS, WILL CONTINUE TO MONITOR.
[2018-08-11] MEDS ORDERED: ZYRTEC 10MG10 MG PO (13:05)
--- NOTE | 2018-08-11 14:28 | NUR ---
ALL MEDICATIONS WILL BE GIVEN DURING PROCEDURE WITH VERBAL ORDER FROM MD. SEE MERGE REPORT FOR MEDICATION ADMIN TIMES. SEE MERGE FOR RASS AND MODERATE SEDATION ASSESSMENTS DURING AND POST PROCEDURE.
--- NOTE | 2018-08-11 15:55 | NUR ---
PT BACK TO ROOM 9 POST AV FISTULOGRAM. BP ELEVATED, UNCHANGED FROM PRIOR. PT ASYMPTOMATIC. ALL OTHER VITALS WNL. RIGHT WRIST WITH BAND AID IS C/D/I. PT DENIES PAIN AT THIS TIME. RESTING IN BED WITH CALL LIGHT IN REACH.
--- NOTE | 2018-08-11 17:50 | NUR ---
PT BP REMAINED ELEVATED POST FISTULOGRAM, BUT SCHEDULED TO GO TO DIALYSIS POST DISCHARGE. SITE REMAINED C/D/I TO RIGHT WRIST AND PAIN DENIED. IV REMOVED FROM LEFT AC INTACT AND WRAPPED. DISCHARGE INSTRUCTIONS REVIEWED AND SIGNED. PT WHEELED OUT SAFELY VIA WHEELCHAIR TO ER ENTRANCE WHERE DAUGHTER WAS WAITING TO PICK HER UP.
== END 2018-08-11 17:50 | disposition home or self-care (01) ==
LOC: COL.CAR 11:40
DX: T82.858A Stenosis of other vascular prosthetic devices, implants and grafts, initial encounter (principal); Z90.710 Acquired absence of both cervix and uterus; Z90.49 Acquired absence of other specified parts of digestive tract; Z87.891 Personal history of nicotine dependence
CPT/HCPCS: J1644; J2250; J3010; Q9967

== ENCOUNTER 2018-08-23 11:51 | Outpatient (CLI) | payer BC ==
[~2018-08-23] VITALS: Ht 160.1 cm; Wt 73.6 kg
[~2018-08-23 11:51] MED LIST changes: +ZYRTEC 10MG10 MG PO
[2018-08-23 12:36] VITALS: BP 139/98; PULSE 72; TEMP 98
[2018-08-23 16:30] VITALS: BP 190/96; PULSE 59
--- NOTE | 2018-08-23 16:32 | NUR ---
ALL MEDICATIONS GIVEN WITH VORB BY MD. SEE MERGE FOR ALL MEDICATION ADMIN TIMES. SEE MERGE FOR ALL RASS ASSESSMENTS DURING AND POST PROCEDURE.
[2018-08-23 17:45] VITALS: BP 181/87; PULSE 80; TEMP 97.9
[2018-08-23 18:00] VITALS: BP 176/82; PULSE 72; TEMP 97.4
[2018-08-23 18:15] VITALS: BP 172/68; PULSE 72; TEMP 97.4
--- NOTE | 2018-08-23 18:15 | NUR ---
INT discontinued intact. Discharge instrcutions given. Transferred to private car by
== END 2018-08-23 18:15 | disposition home or self-care (01) ==
LOC: COL.CAR 11:51
DX: T82.868A Thrombosis due to vascular prosthetic devices, implants and grafts, initial encounter (principal); I12.0 Hypertensive chronic kidney disease with stage 5 chronic kidney disease or end stage renal disease; N18.6 End stage renal disease; E03.9 Hypothyroidism, unspecified; Z90.710 Acquired absence of both cervix and uterus; Z90.49 Acquired absence of other specified parts of digestive tract; Z79.82 Long term (current) use of aspirin
CPT/HCPCS: J1644; J2250; J3010; Q9967

== ENCOUNTER 2018-08-29 12:40 | Outpatient (CLI) | payer BC ==
[2018-08-29] VITALS (7 sets, daily range): BP systolic 162–192; BP diastolic 80–103; PULSE 70–78; TEMP 97.4–98
[~2018-08-29] VITALS: Ht 160.2 cm; Wt 73.4 kg
--- NOTE | 2018-08-29 16:07 | NUR ---
ALL MEDICATIONS GIVEN WITH VORB WITH MD. SEE MERGE FOR ALL MEDICATION ADMIN TIMES. SEE MERGE FOR ALL RASS ASSESSMENTS DURING AND POST PROCEDURE.
--- NOTE | 2018-08-29 16:50 | NUR ---
Back from Intervention Teacher. Left IJ dressing small amount of drainage outlined otherwise CD&I. VSS
--- NOTE | 2018-08-29 18:07 | NUR ---
INT discontinued intact. Discharge instructions given. Left IJ dressing remains CD&I.
--- NOTE | 2018-08-29 18:08 | NUR ---
Transferred to private car by delores
== END 2018-08-29 18:09 | disposition home or self-care (01) ==
LOC: COL.CAR 12:40
DX: T82.898A Other specified complication of vascular prosthetic devices, implants and grafts, initial encounter (principal); N18.6 End stage renal disease; Z90.710 Acquired absence of both cervix and uterus; Z90.49 Acquired absence of other specified parts of digestive tract; Z87.891 Personal history of nicotine dependence
CPT/HCPCS: J0690; J1644; J2250; J3010

== ENCOUNTER → 2018-11-24 | Outpatient (CLI) | payer BC ==
[~2018-11-24] VITALS: Ht 160.2 cm; Wt 71.3 kg
[2018-11-24 12:28] VITALS: BP 159/79; PULSE 82
[2018-11-24 13:00] VITALS: BP 145/76; PULSE 76
--- NOTE | 2018-11-24 13:09 | NUR ---
PT LEAVES AMBULATORY TO POV
== END ==
LOC: COL.RAD 12:08
DX: N18.6 End stage renal disease (principal); L98.8 Other specified disorders of the skin and subcutaneous tissue

== ENCOUNTER 2019-03-02 11:47 | Outpatient (CLI) | payer BC ==
[~2019-03-02] VITALS: Ht 160 cm; Wt 68.0 kg
[2019-03-02] VITALS (8 sets, daily range): BP systolic 157–181; BP diastolic 70–91; PULSE 68–78; TEMP 98.5
[2019-03-02] MEDS ORDERED: NORVASC2.5 MG PO (12:36)
[2019-03-02] MEDS ORDERED: PHOS LO PO (12:50)
--- NOTE | 2019-03-02 13:24 | NUR ---
ALL MEDICATIONS GIVEN VORB WITH MD. SEE MERGE FOR ALL MEDICATION ADMIN TIMES. SEE MERGE FOR ALL RASS ASSESSMENTS DURING AND POST PROCEDURE.
--- NOTE | 2019-03-02 15:00 | NUR ---
Pt returned to EU 12 per bed s/p fistulogram. Pt resting well in bed.
--- NOTE | 2019-03-02 16:00 | NUR ---
Pt belinda PO intake s n/v.
--- NOTE | 2019-03-02 16:32 | NUR ---
Report to Quentin Leslie RN who assumed care at this time.
--- NOTE | 2019-03-02 17:00 | NUR ---
Pt is awake and alert, fistual remains patent with bruit auscultated and thrill palpated. no bleeding at puncture site. amb in room with steady gait. iv dc'd, cath intact, dressing applied. pt escorted to exit via wheelchair. pt denies any concerns or questions at time of discharge.
== END 2019-03-02 17:00 | disposition home or self-care (01) ==
LOC: COL.CAR 11:47
DX: T82.858A Stenosis of other vascular prosthetic devices, implants and grafts, initial encounter (principal); I12.0 Hypertensive chronic kidney disease with stage 5 chronic kidney disease or end stage renal disease; N18.6 End stage renal disease; Z90.710 Acquired absence of both cervix and uterus; Z90.49 Acquired absence of other specified parts of digestive tract; Z79.4 Long term (current) use of insulin; Z79.82 Long term (current) use of aspirin; Z87.891 Personal history of nicotine dependence
CPT/HCPCS: C1725; C1769; C1894; J1644; J2250; J3010; Q9967

== ENCOUNTER → 2019-09-01 | Outpatient (CLI) | payer BC ==
[~2019-09-01] MED LIST changes: +FEMARA PO; +NORVASC2.5 MG PO; +PHOS LO PO
== END ==
LOC: COL.RAD 08-31 09:45
DX: M48.061 Spinal stenosis, lumbar region without neurogenic claudication (principal); M47.16 Other spondylosis with myelopathy, lumbar region; M47.817 Spondylosis without myelopathy or radiculopathy, lumbosacral region; M51.06 Intervertebral disc disorders with myelopathy, lumbar region; M43.16 Spondylolisthesis, lumbar region; C56.9 Malignant neoplasm of unspecified ovary
CPT/HCPCS: A9585

== ENCOUNTER 2019-09-06 10:01 | Inpatient (IN) | payer BC, MEDICARE ==
[~2019-09-06] VITALS: Ht 160 cm; Wt 73.9 kg
[~2019-09-06 10:01] MED LIST changes: +LASIX 80MG TABL80 MG PO
[2019-09-06 11:07] VITALS: BP 188/80; PULSE 93; TEMP 99
[2019-09-06 14:07] LABS: BASO % 0.2 % (0.0-2.0); EOS % 0.1 % (0-4.0); GRAN # 8.6 (1.4-6.5); HEMOGLOBIN 10.2 g/dl (12.5-16.0); LYMPH # 0.8 (1.2-3.4); LYMPH % 7.9 % (20.0-51.0); MEAN CELL VOLUME 102 fl (80.0-100.0); MEAN CORPUSCULAR HEMOGLOBIN 33 pg (27.0-31.0); MEAN CORPUSCULAR HGB CONC 33 g/dl (33.0-37.0); MEAN PLATELET VOLUME 10.4 fl (7.4-10.4); MONO # 0.8 (0.1-0.6); MONO % 7.4 % (1.7-9.3); PLATELET COUNT 204 K/mm3 (130-400); RED BLOOD COUNT 3.07 M/mm3 (4.10-5.30); REDCELL DISTRIBUTION WIDTH-CV 13.4 % (11.5-14.5)
[2019-09-06 14:08] LABS: HEMATOCRIT 31.3 % (37.0-47.0)
[2019-09-06 14:14] LABS: ALBUMIN 3.8 gm/dL (3.5-5.0); CALCIUM 9.3 mg/dL (8.4-10.2); CREATININE, serum 6.88 (0.52-1.25); PHOSPHOROUS 6.4 mg/dL (2.5-4.5); POTASSIUM 4.8 mmol/L (3.4-5.0)
[2019-09-06] MEDS ORDERED: ZYRTEC5 MG PO (15:13)
[2019-09-06] MEDS ORDERED: COZAAR 25MG25 MG/TAB PO (15:16)
--- NOTE | 2019-09-06 19:14 | NUR ---
patient is alert and oriented. said she have some nausea and diarrhea since Wednesday. Patient was admitted for Fluid overload and loose stool. patient said she has not been exposed to any positive covid 19 person, no fever or throat pain. Patient had mild temp at 99 at admission. Temp dropped to 98.8 during dialysis. patient have a dialysis fistula to her right hand.
[2019-09-06 20:15] VITALS: BP 191/84; PULSE 86; TEMP 98.4
--- NOTE | 2019-09-06 22:00 | NUR ---
Pt is resting peacefully in bed with no s/s of distress at this time, is A&Ox4 , uses call light to notify staff of wants/needs and is able to make wants/needs known without difficulty. Pt has settled in for her hospital stay overnight after previously speaking to Dr Waters about being sent home this evening due to Pt not thinking that there was anything being done here that she could not do at home. After speaking to Dr Waters and discussing her health status and Plan of Care Pt decided to stay inpatient. Pt has call light within reach and states that she just wants to go to bed and get some rest and not to be "bothered" through the night. Education provided on F[employer]EL[employer]APH[employer] DESIGN[employer] rounds for VS and Nursing Rounds for assessments. Pt states understanding and this video game script writer states that this video game script writer will not wake up pt unless there is a need to do. Pt ambulated to the restroom and voided before returning to bed and having this video game script writer turn off the bedroom light. Will continue to monitor. Call light is at Pt side. Will continue to monitor.
[2019-09-06 23:40] VITALS: BP 167/69; PULSE 84; TEMP 98.1
--- NOTE | 2019-09-07 02:26 | NUR ---
Pt has been resting peacefully in bed with no s/s of distress nor pain. Call light is noted to be at Pt side. Will continue to monitor.
[2019-09-07 04:25] VITALS: BP 178/68; PULSE 83; TEMP 98.5
--- NOTE | 2019-09-07 05:30 | NUR ---
Since HS, Pt has spent the shift resting in bed peacefully with no s/s of distress and no reported wants/needs. Pt has remained pain free and has had no further episodes of nausea. Call light is at pt's side. Will continue to monitor.
[2019-09-07 07:45] VITALS: BP 145/51; PULSE 81; TEMP 99.2
[2019-09-07 08:49] LABS: BASO % 0.5 % (0.0-2.0); EOS # 0.2 (0.0-0.7); GRAN # 5.6 (1.4-6.5); GRAN % 68.6 % (42.2-75.2); HEMOGLOBIN 11.8 g/dl (12.5-16.0); LYMPH # 1.2 (1.2-3.4); LYMPH % 15.3 % (20.0-51.0); MEAN CELL VOLUME 104 fl (80.0-100.0); MEAN CORPUSCULAR HEMOGLOBIN 34 pg (27.0-31.0); MEAN CORPUSCULAR HGB CONC 33 g/dl (33.0-37.0); MEAN PLATELET VOLUME 10.5 fl (7.4-10.4); MONO % 12.2 % (1.7-9.3); PLATELET COUNT 251 K/mm3 (130-400); RED BLOOD COUNT 3.48 M/mm3 (4.10-5.30); REDCELL DISTRIBUTION WIDTH-CV 13.3 % (11.5-14.5)
[2019-09-07 08:51] LABS: HEMATOCRIT 36.1 % (37.0-47.0)
[2019-09-07 08:56] LABS: CREATININE, serum 4.82 (0.52-1.25); PHOSPHOROUS 5.5 mg/dL (2.5-4.5); POTASSIUM 4.6 mmol/L (3.4-5.0)
--- NOTE | 2019-09-07 09:55 | NUR ---
Patient is alert and oriented. denies any pain. patient said she had loose stool and vomit last night, no episode today. patient is in dialysis at the moment.
[2019-09-07 11:55] VITALS: BP 132/58; PULSE 81; TEMP 98.2
--- NOTE | 2019-09-07 14:41 | NUR ---
Patient was discharged after dialysis, 2,000fluid was removed during dialysis as reported by MARGO Dobbs.
== END 2019-09-07 14:00 | disposition home or self-care (01) | DRG 640 ==
LOC: MEDICAL 10:01
PROVIDERS: ADMIT Internal Medicine Nephrology
PROC: 5A1D70Z Performance of Urinary Filtration, Intermittent, Less than 6 Hours Per Day (ICD-10-PCS; principal; 2019-09-07)
DX: E87.70 Fluid overload, unspecified (principal); N18.6 End stage renal disease; I16.1 Hypertensive emergency; I12.0 Hypertensive chronic kidney disease with stage 5 chronic kidney disease or end stage renal disease; E11.65 Type 2 diabetes mellitus with hyperglycemia; E11.22 Type 2 diabetes mellitus with diabetic chronic kidney disease; E66.9 Obesity, unspecified; F32.9 Major depressive disorder, single episode, unspecified; D63.1 Anemia in chronic kidney disease; E87.6 Hypokalemia; E03.9 Hypothyroidism, unspecified; E83.39 Other disorders of phosphorus metabolism; K52.9 Noninfective gastroenteritis and colitis, unspecified; M19.90 Unspecified osteoarthritis, unspecified site; Z99.2 Dependence on renal dialysis; Z85.43 Personal history of malignant neoplasm of ovary; Z90.710 Acquired absence of both cervix and uterus; Z90.49 Acquired absence of other specified parts of digestive tract; Z79.82 Long term (current) use of aspirin
CPT/HCPCS: J1644; J7030

== ENCOUNTER → 2019-09-18 | Outpatient (CLI) | payer BC ==
[~2019-09-18] MED LIST changes: +COZAAR 25MG25 MG/TAB PO; +ZYRTEC5 MG PO
== END ==
LOC: MC.RAD 15:47
DX: M43.06 Spondylolysis, lumbar region (principal); M51.16 Intervertebral disc disorders with radiculopathy, lumbar region; M47.26 Other spondylosis with radiculopathy, lumbar region

== ENCOUNTER 2019-10-12 11:07 | Outpatient (CLI) | payer BC ==
[2019-10-12] VITALS (8 sets, daily range): BP systolic 142–159; BP diastolic 66–77; PULSE 66–74; TEMP 99
[~2019-10-12] VITALS: Ht 160 cm; Wt 74.3 kg
[~2019-10-12 11:07] MED LIST changes: +B COMPLEX #11 TA1 PO; -B COMPLEX #11 TAB PO
--- NOTE | 2019-10-12 12:58 | NUR ---
SEE MERGE DOCUMENTATION FOR MEDICATION ADMINISTRATION TIMES AND INTRA/POST PROCEDURE SEDATION ASSESSMENTS.
--- NOTE | 2019-10-12 16:55 | NUR ---
Pt escorted to exit via wheelchair at this time after dc/fu instructions were reviewed and IV dc'd with cath intact, dressing was applied. rt arm puncture site still fine without complication, cms intact distal. dressing CDI
== END 2019-10-12 16:55 | disposition home or self-care (01) ==
LOC: COL.CAR 11:07
DX: I77.0 Arteriovenous fistula, acquired (principal); M79.89 Other specified soft tissue disorders; I13.11 Hypertensive heart and chronic kidney disease without heart failure, with stage 5 chronic kidney disease, or end stage renal disease; N18.6 End stage renal disease; Z90.710 Acquired absence of both cervix and uterus; Z90.49 Acquired absence of other specified parts of digestive tract; Z79.899 Other long term (current) drug therapy; Z79.82 Long term (current) use of aspirin; Z87.891 Personal history of nicotine dependence
CPT/HCPCS: C1769; C1894; J1200; J1644; J2250; J3010; Q9967

== ENCOUNTER → 2020-01-25 | Outpatient (CLI) | payer BC, MEDICARE | LOC: COL.RAD 17:01 | DX: R05 Cough (principal) ==

== ENCOUNTER → 2020-01-25 | Outpatient (CLI) | payer BC | LOC: ZCOL.LAB 15:36 | DX: Z20.828 Contact with and (suspected) exposure to other viral communicable diseases (principal) ==

== ENCOUNTER 2020-02-20 11:46 | Outpatient (CLI) | payer BC, MEDICARE ==
[~2020-02-20] VITALS: Ht 160.1 cm; Wt 72.2 kg
[2020-02-20] VITALS (8 sets, daily range): BP systolic 177–191; BP diastolic 82–91; PULSE 72–77; TEMP 98.6
--- NOTE | 2020-02-20 13:01 | NUR ---
Pt to procedure with Ronald Schultz.
--- NOTE | 2020-02-20 13:14 | NUR ---
SEE DEEDEE FOR ALL MEDICATION ADMIN TIMES, INTRA AND POST SEDATION ASSESSMENT
--- NOTE | 2020-02-20 16:39 | NUR ---
Discharge instructions given to pt.pt verbalizes understanding.INT removed,catheter tip intact.
--- NOTE | 2020-02-20 16:55 | NUR ---
Pt escorted out via wheelchair.
== END 2020-02-20 17:38 | disposition home or self-care (01) ==
LOC: COL.CAR 11:46
DX: I87.1 Compression of vein (principal); I12.9 Hypertensive chronic kidney disease with stage 1 through stage 4 chronic kidney disease, or unspecified chronic kidney disease; N18.9 Chronic kidney disease, unspecified; Z99.2 Dependence on renal dialysis; Z90.710 Acquired absence of both cervix and uterus; Z90.49 Acquired absence of other specified parts of digestive tract; Z79.82 Long term (current) use of aspirin; Z79.891 Long term (current) use of opiate analgesic; Z87.891 Personal history of nicotine dependence; Z11.59 Encounter for screening for other viral diseases
CPT/HCPCS: J1644; J2250; J3010; Q9967

== ENCOUNTER 2020-08-20 10:27 | Outpatient (CLI) | payer MEDICARE ==
[~2020-08-20] VITALS: Ht 160 cm; Wt 64.5 kg
[2020-08-20] VITALS (9 sets, daily range): BP systolic 170–209; BP diastolic 82–99; PULSE 78–86; TEMP 98.5
--- NOTE | 2020-08-20 13:29 | NUR ---
Pt is back from procedure, she is drowsy and requires 1l/nc to keep sats >90 while sleeping. puncture site to rt fistula covered with clean and dry bandaid. no evidence of bleeding. lunch ordered. wctm. pt aware of poc for monitoring x 2 hours.
--- NOTE | 2020-08-20 15:35 | NUR ---
Pt's monitoring period is over. Pt has eaten lunch with no problem. She is up now and steady on her feet. IV is dc'd with cath intact, dressing applied. I reviewed dc/fu instructions with pt. Pt has had this procedure multiple times and denies any questions about discharge.
--- NOTE | 2020-08-20 16:13 | NUR ---
to exit via wheelchair
== END 2020-08-20 17:09 | disposition home or self-care (01) ==
LOC: COL.CAR 10:27
DX: T82.858A Stenosis of other vascular prosthetic devices, implants and grafts, initial encounter (principal); N18.6 End stage renal disease; I13.11 Hypertensive heart and chronic kidney disease without heart failure, with stage 5 chronic kidney disease, or end stage renal disease; E03.9 Hypothyroidism, unspecified; Z99.2 Dependence on renal dialysis; Z87.891 Personal history of nicotine dependence; Z20.822 Contact with and (suspected) exposure to COVID-19; Z90.710 Acquired absence of both cervix and uterus; Z90.49 Acquired absence of other specified parts of digestive tract; Z79.890 Hormone replacement therapy; Z79.82 Long term (current) use of aspirin; Z79.899 Other long term (current) drug therapy
CPT/HCPCS: C1725; C1769; C1887; C1894; J1644; J2250; J3010; Q9967

== ENCOUNTER 2020-11-14 10:28 | Outpatient (CLI) | payer MEDICARE, BC ==
[~2020-11-14] VITALS: Ht 160 cm; Wt 66.8 kg
[2020-11-14] VITALS (10 sets, daily range): BP systolic 178–226; BP diastolic 63–106; PULSE 72–80; TEMP 98.5
[2020-11-14] MEDS ORDERED: PROVENTIL0.09 MG/A1 IH (11:21)
[2020-11-14] MEDS ORDERED: XALATAN EYE DROPS OU (11:21)
--- NOTE | 2020-11-14 15:54 | NUR ---
DC instructions reviewed with pt, she expresses understanding. Pt expresses understanding. INT DC'd with catheter intact. She is assisted out to ride's car by wheelchair with belongings.
[2021-04-15] MEDS ORDERED: PERCOCET 325 MG1 TA2 PO (15:45)
[2021-04-16] MEDS ORDERED: ALBUTEROL S0.4 MG/ML PO (17:08)
[2021-04-16] MEDS ORDERED: ELIQUIS 5MG PO (17:09)
[2021-04-16] MEDS ORDERED: ZOFRAN 4MG T4 MG/TAB PO (17:13)
[2021-04-16] MEDS ORDERED: PRENATAL TABLET PO (17:14)
[2021-04-16] MEDS ORDERED: AURYXIA1 GM PO (17:16)
[2021-04-16] MEDS ORDERED: CALCIUM 600MG+D1 TAB PO (17:17)
[2021-04-16] MEDS ORDERED: NATURE'S BLEND100 M2 PO (17:18)
== END 2020-11-14 19:14 | disposition home or self-care (01) ==
LOC: COL.CAR 10:28
DX: T82.858A Stenosis of other vascular prosthetic devices, implants and grafts, initial encounter (principal); N18.6 End stage renal disease; Z99.2 Dependence on renal dialysis; Z79.890 Hormone replacement therapy; Z79.891 Long term (current) use of opiate analgesic; Z79.899 Other long term (current) drug therapy; Z87.891 Personal history of nicotine dependence; Z20.822 Contact with and (suspected) exposure to COVID-19
CPT/HCPCS: C1725; C1769; C1887; C1894; J1644; J2250; J3010; Q9967

== ENCOUNTER 2020-12-17 16:12 | Inpatient (IN) | payer MEDICARE, BC ==
[~2020-12-17] VITALS: Ht 160 cm; Wt 69.0 kg
[~2020-12-17 16:12] MED LIST changes: +PROVENTIL0.09 MG/A1 IH; +XALATAN EYE DROPS OU
[2020-12-17 18:58] LABS: ARTERIAL BLD GAS O2 SATURATION 93.6 % (92-100); ARTERIAL BLD GAS TCO2 CT 22.2; ARTERIAL BLOOD GAS HCO3 21.2 meq/L (22-26); ARTERIAL BLOOD GAS PCO2 31.2 mmHg (35-45); ARTERIAL BLOOD GAS PO2 72.5 mmHg (80-100); ARTERIAL BLOOD GAS pH 7.45 (7.35-7.45)
--- NOTE | 2020-12-17 19:28 | NUR ---
Patient admitted from home with increased SOA. Upon initial assessment was SATing 87% on RA. Patient placed on 1.5 L of O2 via nasal cannula, patient currently SATing 93%. Normal S1 and S2 sounds present, radial and pedal pusles +2 bilaterally, patient A&O, no skin issues noted, upon auscultation upper lobes clear, crackles heard in lower lobes. Fistula located on right forearm. Dr. Gonzalez notified of patients arrival. Orders placed. Med rec, allergies, and admission paperwork completed. BP elevated. All other vitals stable. Call light in reach.
[2020-12-17 20:42] VITALS: BP 196/67; PULSE 70; TEMP 99
[2020-12-17 21:01] LABS: ALBUMIN 3.7 gm/dL (3.5-5.0); BILIRUBIN,TOTAL 0.9 mg/dL (0.0-1.0); CALCIUM 8.3 mg/dL (8.4-10.2); CREATININE, serum 8.53 (0.52-1.25); POTASSIUM 4.5 mmol/L (3.4-5.0); TOTAL PROTEIN 7.1 gm/dL (6.4-8.2)
[2020-12-17 21:08] LABS: INR 1.1 (0.8-3.0); PROTHROMBIN TIME 12.1 SECONDS (9.7-12.8)
[2020-12-18 00:01] VITALS: BP 187/74; PULSE 68; TEMP 98.1
--- NOTE | 2020-12-18 03:21 | NUR ---
Assessment completed, alert and oriented. Blood pressure is high and it's normal for patient. Hydralazine PRN given for BP of 187/74. Otherwise denies pain or SOB. Gets up independent to the BR. On 1.5L with any complains. Continue to monitor.
[2020-12-18 03:47] VITALS: BP 171/65; PULSE 67; TEMP 98.2
--- NOTE | 2020-12-18 06:01 | NUR ---
Dr Schmitt called at 0600 AM for consult.
[2020-12-18 07:12] LABS: HEMOGLOBIN 10.1 g/dl (12.5-16.0); MEAN CELL VOLUME 99 fl (80.0-100.0); MEAN CORPUSCULAR HEMOGLOBIN 31 pg (27.0-31.0); MEAN CORPUSCULAR HGB CONC 32 g/dl (33.0-37.0); MEAN PLATELET VOLUME 11.9 fl (7.4-10.4); PLATELET COUNT 140 K/mm3 (130-400); RED BLOOD COUNT 3.25 M/mm3 (4.10-5.30); REDCELL DISTRIBUTION WIDTH-CV 14.6 % (11.5-14.5)
[2020-12-18 07:14] LABS: ALBUMIN 3.3 gm/dL (3.5-5.0); BILIRUBIN,TOTAL 0.6 mg/dL (0.0-1.0); CREATININE, serum 8.82 (0.52-1.25); POTASSIUM 5.2 mmol/L (3.4-5.0); TOTAL PROTEIN 6.6 gm/dL (6.4-8.2)
--- NOTE | 2020-12-18 08:37 | NUR ---
Pt awake upon entry, no C/O pain until IV started, infiltration noted at IV site with doxycycline running, stopped infusion. Shift assessment complete, left Pt call light in reach, bed in lowest position.
[2020-12-18 09:00] VITALS: BP 164/72; PULSE 69; TEMP 97.9
[2020-12-18 09:11] LABS: BAND 4 % (0-10); LYMPHOCYTE 5 % (20.0-51.0); NEUTROPHILS 90 % (42.0-75.2); OVALOCYTES 1+; PLATELET ESTIMATE DECREASED (NORMAL); SCHISTOCYTES 1+
--- NOTE | 2020-12-18 10:38 | NUR ---
The patient is COVID positive. SW contacted the patient's room phone to discuss discharge plan. The patient lives in [place] with her mother, Faina (ph#[phone]). She reports independence with ADLs and has a walker. The patient's PCP is Dr. Sera Arnold and she receives her medications from [facility]. She reports no difficulties obtaining her meds. The patient does not have a DPOA-HC and she was not interested in completing one while here. She states that she is not and that she has one child: Day (ph#[phone]). SW informed her how Day is her next of kin. The patient verbalized understanding. The patient plans to return home with her mother upon discharge. She is currently requiring 2 liters of oxygen. SW to continue to monitor. *Discharge plan: home with mother*
--- NOTE | 2020-12-18 15:18 | NUR ---
PATIENT TOLERATED HD TX WITH 2L FLUID REMOVAL TODAY. ATTEMPTED INCREASED UF GOAL BUT PATIENT FELT NAUSEATED & HYOTENSIVE @ 83/47 WHICH RESOLVED WITH 200 ML FLUID BOLUS. NEXT PLANNED HD TX ON Wednesday12/20/20 @ 0800.
[2020-12-18 16:00] VITALS: BP 178/68; PULSE 72; TEMP 98.3
[2020-12-18 20:39] VITALS: BP 176/70; BP 179/70; BP 189/79; PULSE 71; TEMP 98.1
[2020-12-19] VITALS (7 sets, daily range): BP systolic 143–183; BP diastolic 51–72; PULSE 62–75; TEMP 97.7–98.4
[2020-12-19 07:01] LABS: GRAN # 2.5 (1.4-6.5); GRAN % 82.3 % (42.2-75.2); LYMPH # 0.2 (1.2-3.4); LYMPH % 6.9 % (20.0-51.0); MEAN CELL VOLUME 99 fl (80.0-100.0); MEAN CORPUSCULAR HGB CONC 31 g/dl (33.0-37.0); MEAN PLATELET VOLUME 12.2 fl (7.4-10.4); MONO # 0.3 (0.1-0.6); MONO % 9.5 % (1.7-9.3); PLATELET COUNT 146 K/mm3 (130-400); RED BLOOD COUNT 3.14 M/mm3 (4.10-5.30); REDCELL DISTRIBUTION WIDTH-CV 14.6 % (11.5-14.5)
[2020-12-19 07:07] LABS: ALBUMIN 3.1 gm/dL (3.5-5.0); BILIRUBIN,TOTAL 0.5 mg/dL (0.0-1.0); CALCIUM 8.7 mg/dL (8.4-10.2); CREATININE, serum 5.07 (0.52-1.25); HEMATOCRIT 31.2 % (37.0-47.0); HEMOGLOBIN 9.8 g/dl (12.5-16.0); MEAN CORPUSCULAR HEMOGLOBIN 31 pg (27.0-31.0); POTASSIUM 4.6 mmol/L (3.4-5.0); TOTAL PROTEIN 6.3 gm/dL (6.4-8.2)
--- NOTE | 2020-12-19 09:09 | NUR ---
Pt awake upon entry, no C/O pain currently. Some bleeding from fustula assess sites, bandaged with 2X2 and paper tape. Talkative. Shift assessment complete, left Pt call light in reach, needs met.
--- NOTE | 2020-12-20 03:06 | NUR ---
PT BP ELEVATED, HYDRALAZINE ADMINISTERED ORDERED. NURSE WILL F/U. CALL LIGHT WITHIN REACH.
[2020-12-20 04:22] VITALS: BP 160/65; PULSE 68; TEMP 97.6
--- NOTE | 2020-12-20 05:55 | NUR ---
PT HAD UNEVENTFUL NIGHT, 02 REMAINED ROOM AIR SATURATION WNL, PT REMAINED AFEBRILE, PT DENIES PAIN,N,V,D, CONSTIPATION. PT REMAINED AFEBRILE OVERNIGHT. MEDICATIONS ADMINISTERED ORDERED. UPON F/U AFTER ADMINSTRATION OF HYDRALIZINE PT'S BP DID LOWER WNL. PT EXPRESSES NO ADDITIONAL NEEDS AT THIS TIME. CALL LIGHT WITHIN REACH.
[2020-12-20 06:59] LABS: HEMOGLOBIN 10.1 g/dl (12.5-16.0); MEAN CELL VOLUME 98 fl (80.0-100.0); MEAN CORPUSCULAR HEMOGLOBIN 31 pg (27.0-31.0); MEAN CORPUSCULAR HGB CONC 32 g/dl (33.0-37.0); MEAN PLATELET VOLUME 11.8 fl (7.4-10.4); PLATELET COUNT 200 K/mm3 (130-400); RED BLOOD COUNT 3.22 M/mm3 (4.10-5.30); REDCELL DISTRIBUTION WIDTH-CV 14.6 % (11.5-14.5)
[2020-12-20 07:02] LABS: HEMATOCRIT 31.6 % (37.0-47.0)
[2020-12-20 07:07] LABS: ALBUMIN 3.1 gm/dL (3.5-5.0); BILIRUBIN,TOTAL 0.3 mg/dL (0.0-1.0); CALCIUM 9.3 mg/dL (8.4-10.2); CREATININE, serum 6.18 (0.52-1.25); POTASSIUM 4.7 mmol/L (3.4-5.0); TOTAL PROTEIN 6.3 gm/dL (6.4-8.2)
[2020-12-20 07:53] VITALS: BP 158/56; PULSE 65; TEMP 98
[2020-12-20 07:53] LABS: BAND 8 % (0-10); BURR CELLS 1+; LYMPHOCYTE 9 % (20.0-51.0); NEUTROPHILS 82 % (42.0-75.2); OVALOCYTES 1+; PLATELET ESTIMATE NORMAL (NORMAL)
--- NOTE | 2020-12-20 14:10 | NUR ---
SW called patient to check in on discharge plan. Patient states she still plans to discharge home and has no concerns at this time about going home. No other needs at this time. * Discharge Plan: Home *
[2020-12-20 16:00] VITALS: BP 166/85; PULSE 64; TEMP 98.5
--- NOTE | 2020-12-20 16:12 | NUR ---
Patient tolerated HD tx with 2.4L of fluid off. Attempted more fluid removal but patient's Bp lowered to 111 systolic. No nausea this tx. Diarrhea X 1, soft almost liquid moderate amt. Next HD tx scheduled for Wednesday12/23/20 @ 0800.
--- NOTE | 2020-12-20 18:03 | NUR ---
Patient had an uneventful day. Had dialysis and tolerated well. Has had several loose stools, immodium given as requested. A&Ox4. VSS. IV CDI. Fistula CDI. Denies pain and discomfort. Droplet/contact precautions in place. No further needs expressed. Call light within reach
[2020-12-20 20:02] VITALS: BP 181/68; PULSE 70; TEMP 98.1
[2020-12-21] VITALS (7 sets, daily range): BP systolic 153–183; BP diastolic 54–77; PULSE 63–70; TEMP 97.8–98.9
--- NOTE | 2020-12-21 01:07 | NUR ---
BP ELEVATED,PT ASYMPTOMATIC, MEDICATION ADMINISTERED ORDERED.
--- NOTE | 2020-12-21 06:20 | NUR ---
PT REMAINS 02 ROOM AIR, VSS, BP DID LOWER AFTER MEDICATION ADMINISTRATION. PT EXPRESSES NO ADDITIONAL NEEDS AT THIS TIME. CALL LIGHT WITHIN REACH.
[2020-12-21 07:33] LABS: BASO % 0.1 % (0.0-2.0); GRAN # 9.1 (1.4-6.5); GRAN % 88.1 % (42.2-75.2); LYMPH # 0.5 (1.2-3.4); LYMPH % 5.2 % (20.0-51.0); MEAN CELL VOLUME 99 fl (80.0-100.0); MEAN CORPUSCULAR HGB CONC 32 g/dl (33.0-37.0); MEAN PLATELET VOLUME 11.3 fl (7.4-10.4); MONO # 0.6 (0.1-0.6); MONO % 5.5 % (1.7-9.3); PLATELET COUNT 224 K/mm3 (130-400); RED BLOOD COUNT 3.14 M/mm3 (4.10-5.30); REDCELL DISTRIBUTION WIDTH-CV 14.9 % (11.5-14.5)
[2020-12-21 07:38] LABS: ALBUMIN 3.1 gm/dL (3.5-5.0); BILIRUBIN,TOTAL 0.4 mg/dL (0.0-1.0); CALCIUM 9.1 mg/dL (8.4-10.2); CREATININE, serum 3.88 (0.52-1.25); POTASSIUM 4.6 mmol/L (3.4-5.0); TOTAL PROTEIN 6.1 gm/dL (6.4-8.2)
[2020-12-21 07:39] LABS: HEMATOCRIT 31.1 % (37.0-47.0); HEMOGLOBIN 9.8 g/dl (12.5-16.0); MEAN CORPUSCULAR HEMOGLOBIN 31 pg (27.0-31.0)
--- NOTE | 2020-12-21 07:53 | NUR ---
Patient laying in bed, watching her cell phone. A&Ox4. VSS. IV CDI. Denies pain and discomfort. Ristula RUE CDI. Droplet/contact precautions in place. Call light within reach. No further needs expressed
--- NOTE | 2020-12-21 16:59 | NUR ---
Patient had an uneventful day. A&Ox4. VSS. IV CDI. Fistula CDI. Denies pain, discomfort, and SOB. Independent in room. Droplet/contact precautions in place. No further needs expressed from the patient. Call light within reach
[2020-12-22 03:51] VITALS: BP 171/59; PULSE 68; TEMP 98.4
--- NOTE | 2020-12-22 04:12 | NUR ---
PT BP ELEVATED, PT ASYMPTOMATIC, MEDICATION ADMINISTERED ORDERED. CALL LIGHT WITHIN REACH.
[2020-12-22 07:19] LABS: HEMOGLOBIN 10.3 g/dl (12.5-16.0); MEAN CELL VOLUME 98 fl (80.0-100.0); MEAN CORPUSCULAR HEMOGLOBIN 31 pg (27.0-31.0); MEAN CORPUSCULAR HGB CONC 32 g/dl (33.0-37.0); MEAN PLATELET VOLUME 11.9 fl (7.4-10.4); PLATELET COUNT 256 K/mm3 (130-400); RED BLOOD COUNT 3.31 M/mm3 (4.10-5.30); REDCELL DISTRIBUTION WIDTH-CV 15.1 % (11.5-14.5)
[2020-12-22 07:25] LABS: HEMATOCRIT 32.3 % (37.0-47.0)
[2020-12-22 07:32] LABS: ALBUMIN 2.9 gm/dL (3.5-5.0); BILIRUBIN,TOTAL 0.2 mg/dL (0.0-1.0); CALCIUM 8.9 mg/dL (8.4-10.2); CREATININE, serum 4.94 (0.52-1.25); POTASSIUM 4.4 mmol/L (3.4-5.0)
[2020-12-22 07:35] VITALS: BP 167/54; PULSE 68; TEMP 98.6
[2020-12-22 07:54] LABS: BAND 2 % (0-10); LYMPHOCYTE 6 % (20.0-51.0); MYELOCYTE 1 % (0-0); NEUTROPHILS 86 % (42.0-75.2); OVALOCYTES 1+; SCHISTOCYTES 1+
[2020-12-22 07:55] LABS: PLATELET ESTIMATE NORMAL (NORMAL)
--- NOTE | 2020-12-22 08:10 | NUR ---
Patient laying in bed watching cell phone. A&Ox4. VSS. IV CDI. Denies pain and discomfort. Droplet/contact precautions in place. No further needs expressed from the patient. Call light within reach
[2020-12-22 12:00] VITALS: BP 153/51; PULSE 66; TEMP 97.9
[2020-12-22 16:12] VITALS: BP 158/65; PULSE 64; TEMP 98
--- NOTE | 2020-12-22 19:05 | NUR ---
Patient had an uneventful day. Spent most of the shift resting in bed. A&Ox4. VSS. IV CDI. Fistula CDI. Denies pain and discomfort. Droplet/contact precautions in place. No further needs expressed. Call light within reach
[2020-12-22 21:31] VITALS: BP 157/76; PULSE 74; TEMP 97.9
--- NOTE | 2020-12-22 22:38 | NUR ---
Patient sitting up in the chair and watching her iphone upon enter the room. Shift assessment completed. Patient alert and oriented. Patient denies any pain or discomfort. Denies SOB or dyspnea. Patient currently on room air. SPO2 97% of RA. No respiratory distress noted. All scheduled meds given per JUL. Ice water provided per patient request. Call light within reach. Will continue to monitor.
[2020-12-23 00:01] VITALS: BP 167/69; PULSE 94; TEMP 98.5
[2020-12-23 05:03] VITALS: BP 165/68; BP 185/66; PULSE 67; TEMP 97.6
[2020-12-23 09:49] LABS: HEMOGLOBIN 10.4 g/dl (12.5-16.0); MEAN CELL VOLUME 94 fl (80.0-100.0); MEAN CORPUSCULAR HEMOGLOBIN 31 pg (27.0-31.0); MEAN CORPUSCULAR HGB CONC 33 g/dl (33.0-37.0); MEAN PLATELET VOLUME 11.2 fl (7.4-10.4); PLATELET COUNT 323 K/mm3 (130-400); RED BLOOD COUNT 3.36 M/mm3 (4.10-5.30); REDCELL DISTRIBUTION WIDTH-CV 14.7 % (11.5-14.5)
[2020-12-23 09:52] LABS: HEMATOCRIT 31.5 % (37.0-47.0)
[2020-12-23 09:59] LABS: CALCIUM 9.5 mg/dL (8.4-10.2); CREATININE, serum 6.52 (0.52-1.25); PHOSPHOROUS 5.4 mg/dL (2.5-4.5)
--- NOTE | 2020-12-23 10:23 | NUR ---
Pt awake upon entry, undergoing dialysis. No C/O pain at this time. Shift assessment complete.
[2020-12-23 10:41] LABS: LYMPHOCYTE 5 % (20.0-51.0); MYELOCYTE 1 % (0-0); NEUTROPHILS 88 % (42.0-75.2)
[2020-12-23 10:42] LABS: OVALOCYTES 1+; PLATELET ESTIMATE NORMAL (NORMAL); SCHISTOCYTES 1+
--- NOTE | 2020-12-23 11:45 | NUR ---
PATIENT TOLERATED HD TX WITH 2.2L FLUID REMOVAL TODAY. NEXT PLANNED HD TX @ [facility].
[2020-12-23 12:30] VITALS: BP 161/63; PULSE 71; TEMP 97.8
--- NOTE | 2020-12-23 13:49 | NUR ---
The patient is to discharge back home with her mother today, 12/23. SW contacted the patient and read the IM form outloud to her. The patient verbalized understanding and gave approval to sign the form on her behalf. The patient had no questions or concerns for SW about returning home.
[2020-12-23] MEDS ORDERED: DOXYCYCLINE HY100 MG PO (13:54)
[2020-12-23] MEDS ORDERED: CEFTIN 250250 MG/TAB PO (13:55)
--- NOTE | 2020-12-23 17:00 | NUR ---
Pt discharged to home. Discussed discharge instructions with Pt. Escorted Pt to entrance, assisted into vehicle. Pt left with spouse via private auto.
[2021-04-15] MEDS ORDERED: PERCOCET 325 MG1 TA2 PO (15:45)
[2021-04-16] MEDS ORDERED: ALBUTEROL S0.4 MG/ML PO (17:08)
[2021-04-16] MEDS ORDERED: ELIQUIS 5MG PO (17:09)
[2021-04-16] MEDS ORDERED: ZOFRAN 4MG T4 MG/TAB PO (17:13)
[2021-04-16] MEDS ORDERED: PRENATAL TABLET PO (17:14)
[2021-04-16] MEDS ORDERED: AURYXIA1 GM PO (17:16)
[2021-04-16] MEDS ORDERED: CALCIUM 600MG+D1 TAB PO (17:17)
[2021-04-16] MEDS ORDERED: NATURE'S BLEND100 M2 PO (17:18)
== END 2020-12-23 17:00 | disposition home or self-care (01) | DRG 177 ==
LOC: COL.ER 16:12 → MEDICAL 16:12 → EDSTATUS 16:51 → MEDICAL 12-23 17:00
PROVIDERS: ADMIT Internal Medicine Nephrology
PROC: 5A1D70Z Performance of Urinary Filtration, Intermittent, Less than 6 Hours Per Day (ICD-10-PCS; principal; 2020-12-18)
DX: U07.1 COVID-19 (principal); N18.6 End stage renal disease; J12.82 Pneumonia due to coronavirus disease 2019; J96.01 Acute respiratory failure with hypoxia; I12.0 Hypertensive chronic kidney disease with stage 5 chronic kidney disease or end stage renal disease; E78.5 Hyperlipidemia, unspecified; F32.9 Major depressive disorder, single episode, unspecified; M19.90 Unspecified osteoarthritis, unspecified site; D63.1 Anemia in chronic kidney disease; F17.210 Nicotine dependence, cigarettes, uncomplicated; E03.9 Hypothyroidism, unspecified; E83.39 Other disorders of phosphorus metabolism; Z90.49 Acquired absence of other specified parts of digestive tract; Z90.710 Acquired absence of both cervix and uterus; Z85.43 Personal history of malignant neoplasm of ovary; Z79.82 Long term (current) use of aspirin
CPT/HCPCS: J0696; J1644; J1815; J7030; J8540; Q5105

== ENCOUNTER 2021-02-17 10:00 | Outpatient (CLI) | payer MEDICARE, BC ==
[2021-02-17] VITALS (7 sets, daily range): BP systolic 184–214; BP diastolic 88–114; PULSE 76–83; TEMP 97.3
[~2021-02-17] VITALS: Ht 160.1 cm; Wt 65.2 kg
[~2021-02-17 10:00] MED LIST changes: +CEFTIN 250250 MG/TAB PO; +DOXYCYCLINE HY100 MG PO
[2021-02-17] MEDS ORDERED: SYNTHROID 0.0.025 MG PO (11:21)
[2021-02-17] MEDS ORDERED: VITAMIN B COMPL1 SGL PO (11:28)
[2021-02-17] MEDS ORDERED: XALATAN EYE DROPS OD (11:33)
--- NOTE | 2021-02-17 12:00 | NUR ---
Spoke with Dr cody in reference to pt's blood pressures.No new orders at this time.
--- NOTE | 2021-02-17 12:15 | NUR ---
Pt to procedure,report to MARGO Evans.
--- NOTE | 2021-02-17 12:29 | NUR ---
SEE MERGE DOCUMENTATION FOR MEDICAITON ADMINISTRATION TIMES AND INTRA/POST PROCEDURE SEDATION ASSESSMENTS.
--- NOTE | 2021-02-17 13:22 | NUR ---
Pt returned from procedure,report from Ronald Evans.
--- NOTE | 2021-02-17 14:51 | NUR ---
Discharge instructions given to pt.Pt verbalizes understanding.INT removed,catheter tip itnact.
--- NOTE | 2021-02-17 15:04 | NUR ---
Pt escorted out by this nurse.
[2021-04-15] MEDS ORDERED: PERCOCET 325 MG1 TA2 PO (15:45)
[2021-04-16] MEDS ORDERED: ALBUTEROL S0.4 MG/ML PO (17:08)
[2021-04-16] MEDS ORDERED: ELIQUIS 5MG PO (17:09)
[2021-04-16] MEDS ORDERED: ZOFRAN 4MG T4 MG/TAB PO (17:13)
[2021-04-16] MEDS ORDERED: PRENATAL TABLET PO (17:14)
[2021-04-16] MEDS ORDERED: AURYXIA1 GM PO (17:16)
[2021-04-16] MEDS ORDERED: CALCIUM 600MG+D1 TAB PO (17:17)
[2021-04-16] MEDS ORDERED: NATURE'S BLEND100 M2 PO (17:18)
== END 2021-02-17 15:04 ==
LOC: COL.CAR 10:00
DX: T82.858A Stenosis of other vascular prosthetic devices, implants and grafts, initial encounter (principal); Z20.822 Contact with and (suspected) exposure to COVID-19
CPT/HCPCS: C1725; C1769; C1894; J1644; J2250; J3010; Q9967

== ENCOUNTER → 2021-03-18 | Outpatient (CLI) | payer MEDICARE, BC ==
[~2021-03-18] MED LIST changes: +ALBUTEROL S0.4 MG/ML PO; +AURYXIA1 GM PO; +CALCIUM 600MG+D1 TAB PO; +ELIQUIS 5MG PO; +NATURE'S BLEND100 M2 PO; +PERCOCET 325 MG1 TA2 PO; +PRENATAL TABLET PO; +VITAMIN B COMPL1 SGL PO; +XALATAN EYE DROPS OD; +ZOFRAN 4MG T4 MG/TAB PO
== END ==
LOC: MC.RAD 13:55
DX: Z12.31 Encounter for screening mammogram for malignant neoplasm of breast (principal)

== ENCOUNTER 2021-04-14 06:40 | Outpatient (CLI) | payer BC, MEDICARE ==
[2021-04-14] VITALS (10 sets, daily range): BP systolic 123–141; BP diastolic 55–65; PULSE 56–68; TEMP 97.4
[~2021-04-14] VITALS: Ht 160 cm; Wt 64.9 kg
[~2021-04-14 06:40] MED LIST changes: -ALBUTEROL S0.4 MG/ML PO; -AURYXIA1 GM PO; -CALCIUM 600MG+D1 TAB PO; -ELIQUIS 5MG PO; -NATURE'S BLEND100 M2 PO; -PERCOCET 325 MG1 TA2 PO; -PRENATAL TABLET PO; -ZOFRAN 4MG T4 MG/TAB PO
--- NOTE | 2021-04-14 08:07 | NUR ---
SEE MERGE DOCUMENTATION FOR MEDICATION ADMINISTRATION TIMES AND INTRA/POST PROCEDURE SEDATION ASSESSMENTS.
--- NOTE | 2021-04-14 11:16 | NUR ---
Discharge instructions given to pt.Pt verbalizes understanding.INt removed,catheter tip intact.Pt escorted out via wheelchair by MARGO Kaur.
[2021-04-15] MEDS ORDERED: PERCOCET 325 MG1 TA2 PO (15:45)
[2021-04-16] MEDS ORDERED: ALBUTEROL S0.4 MG/ML PO (17:08)
[2021-04-16] MEDS ORDERED: ELIQUIS 5MG PO (17:09)
[2021-04-16] MEDS ORDERED: ZOFRAN 4MG T4 MG/TAB PO (17:13)
[2021-04-16] MEDS ORDERED: PRENATAL TABLET PO (17:14)
[2021-04-16] MEDS ORDERED: AURYXIA1 GM PO (17:16)
[2021-04-16] MEDS ORDERED: CALCIUM 600MG+D1 TAB PO (17:17)
[2021-04-16] MEDS ORDERED: NATURE'S BLEND100 M2 PO (17:18)
== END 2021-04-14 12:05 ==
LOC: COL.CAR 06:40
DX: T82.7XXA Infection and inflammatory reaction due to other cardiac and vascular devices, implants and grafts, initial encounter (principal); M79.601 Pain in right arm; N18.6 End stage renal disease; Z99.2 Dependence on renal dialysis; Z90.710 Acquired absence of both cervix and uterus; Z79.82 Long term (current) use of aspirin; Z79.899 Other long term (current) drug therapy; Z79.891 Long term (current) use of opiate analgesic; Z79.890 Hormone replacement therapy; Z87.891 Personal history of nicotine dependence
CPT/HCPCS: J1644; J2250; J3010; J7050; Q9967